=== PATIENT | female | born 1970 | race Caucasian/White ===

== ENCOUNTER 2017-10-24 04:36 | Outpatient (CLI) | payer MEDICAID ==
[~2017-10-24 04:36] MED LIST: BUPR150T8 PO; CIPR-230 PO; LEVO175T2 PO; METO-467 PO; MULT-1179 PO; OMEP10CA4 PO
== END 2017-10-24 23:59 | disposition home or self-care (01) ==
LOC: DIABETIC 04:36
PROVIDERS: ATTEND Nurse Practitioner Family
DX: E03.9 Hypothyroidism, unspecified (principal); I10 Essential (primary) hypertension; K21.9 Gastro-esophageal reflux disease without esophagitis; M35.00 Sjogren syndrome, unspecified; M79.7 Fibromyalgia; L93.0 Discoid lupus erythematosus
CPT/HCPCS: 97802

== ENCOUNTER 2017-12-19 12:31 | Emergency (ER) | payer OTHER, MEDICAID ==
[~2017-12-19] VITALS: Ht 160 cm; Wt 80.0 kg
[2017-12-19 12:56] LABS: BASOPHILS % (AUTO) 0.3 % (0-1); EOSINOPHILS % (AUTO) 0.6 % (0-6); HEMATOCRIT 37.3 % (35.0-45.0); HEMOGLOBIN 12.9 g/dl (12.0-16.0); LYMPHOCYTES # (AUTO) 0.9 X10'3 (1.1-4.8); LYMPHOCYTES % (AUTO) 16.7 % (21-51); MEAN CORPUSCULAR HEMOGLOBIN 32.6 PG (27.0-31.0); MEAN CORPUSCULAR HGB CONC 34.6 % (33.0-36.5); MEAN CORPUSCULAR VOLUME 94.3 FL (78-98); MONOCYTES # (AUTO) 0.2 X10'3 (0-0.9); MONOCYTES % (AUTO) 3.4 % (2-12); NEUTROPHILS # (AUTO) 4.1 X10'3 (1.8-7.7); PLATELET COUNT 253 X10'3 (140-440); RED BLOOD COUNT 3.95 X10'6 (4.20-5.60); RED CELL DISTRIBUTION WIDTH 13.7 % (11.5-14.5); WHITE BLOOD COUNT 5.2 X10'3 (4.5-11.0)
[2017-12-19 13:07] LABS: PARTIAL THROMBOPLASTIN TIME 25 SECONDS (22-32); PROTHROMBIN TIME 10.3 SECONDS (9.0-12.0)
[2017-12-19 13:18] LABS: ALANINE AMINOTRANSFERASE 62 U/L (12-78); ALBUMIN 3.6 G/DL (3.4-5.0); ALKALINE PHOSPHATASE 94 IU/L (46-116); ANION GAP 11 (8-16); ASPARTATE AMINO TRANSFERASE 60 U/L (10-37); BILIRUBIN,TOTAL 0.2 MG/DL (0.1-1.0); BLOOD UREA NITROGEN 15 MG/DL (7-18); BUN/CREATININE RATIO 14.4 (6.6-38.0); CALCIUM 8.5 MG/DL (8.5-10.1); CHLORIDE 102 MMOL/L (99-107); CREATININE 1.04 MG/DL (0.40-0.90); GLUCOSE 127 MG/DL (70-104); POTASSIUM 4.2 MMOL/L (3.5-5.1); SODIUM 139 MMOL/L (135-145); TOTAL CARBON DIOXIDE 26.3 MMOL/L (24-32); TOTAL PROTEIN 7.2 G/DL (6.4-8.2); eGFR 57 ML/MIN
[2017-12-19 15:34] VITALS: BP 132/88
== END 2017-12-19 15:36 | disposition home or self-care (01) ==
LOC: ER 12:32
DX: R07.89 Other chest pain (principal); E78.00 Pure hypercholesterolemia, unspecified; I10 Essential (primary) hypertension; Z88.5 Allergy status to narcotic agent; Z88.8 Allergy status to other drugs, medicaments and biological substances; Z79.899 Other long term (current) drug therapy
CPT/HCPCS: 36415; 71045; 80053; 84484; 85025; 85610; 85730; 93005; 99285

== ENCOUNTER 2018-02-19 07:40 | Emergency (ER) | payer MEDICAID, OTHER ==
[~2018-02-19] VITALS: Ht 162.6 cm; Wt 78.1 kg
[2018-02-19 07:42] VITALS: BP 184/92
[2018-02-19] MEDS ORDERED: cephalexin 500mg capsule PO ONE (08:00)
[2018-02-19] MEDS ORDERED: ketorolac trometh inj. 60 MG/2 ML VIAL IM ONE (08:00)
[2018-02-19] MEDS ORDERED: acetaminophen 325mg tablet PO ONE (08:00)
[2018-02-19] MEDS ORDERED: CefTRIAXone 1000mg IM Kit (w/lidocaine diluent) IM ONE (08:00)
[2018-02-19] MEDS ORDERED: doxycycline hyclate 100mg tablet.DR PO ONE (08:00)
[2018-02-19] MEDS ORDERED: ondansetron 4mg rapidly disintigrating tab PO ONE (08:00)
[2018-02-19] MEDS ORDERED: ONDA8TAB9 PO (08:10)
[2018-02-19] MEDS ORDERED: DOXY100C43 PO (08:10)
[2018-02-19] MEDS ORDERED: CEPH250T PO (08:10)
[2018-02-19] MEDS ORDERED: HYDR-3965 PO (08:10)
[2018-02-19] MEDS ORDERED: DOXYCYCLINE 100MG CAPSULE PO ONE (08:20)
== END 2018-02-19 08:48 | disposition home or self-care (01) ==
LOC: ER 07:41
DX: L03.113 Cellulitis of right upper limb (principal); L02.511 Cutaneous abscess of right hand; E78.00 Pure hypercholesterolemia, unspecified; I10 Essential (primary) hypertension; Z98.890 Other specified postprocedural states; Z88.5 Allergy status to narcotic agent; Z88.8 Allergy status to other drugs, medicaments and biological substances; Z79.899 Other long term (current) drug therapy; Z59.0 Homelessness
CPT/HCPCS: 10060; 96372; 99284; A6255; J0696; J1885

== ENCOUNTER 2018-09-14 10:07 | Emergency (ER) | payer OTHER, MEDICAID ==
[~2018-09-14] VITALS: Ht 162.6 cm; Wt 73.0 kg
[~2018-09-14 10:07] MED LIST changes: +CEPH250T PO; +ONDA4TAB6 PO; +ONDA8TAB9 PO
[2018-09-14 11:44] LABS: BASOPHILS # (AUTO) 0.1 X10'3 (0-0.2); BASOPHILS % (AUTO) 0.6 % (0-1); EOSINOPHILS % (AUTO) 0 % (0-6); HEMATOCRIT 34.9 % (35.0-45.0); HEMOGLOBIN 11.6 g/dl (12.0-16.0); LYMPHOCYTES # (AUTO) 0.7 X10'3 (1.1-4.8); MEAN CORPUSCULAR HEMOGLOBIN 30.9 PG (27.0-31.0); MEAN CORPUSCULAR HGB CONC 33.1 g/dL (33.0-36.5); MEAN CORPUSCULAR VOLUME 93.2 FL (78-98); MEAN PLATELET VOLUME 6.8 FL (7.4-10.4); NEUTROPHILS # (AUTO) 7.1 X10'3 (1.8-7.7); NEUTROPHILS % (AUTO) 80.4 % (42-75); PLATELET COUNT 385 X10'3 (140-440); RED BLOOD COUNT 3.75 X10'6 (4.20-5.60); RED CELL DISTRIBUTION WIDTH 12.8 % (11.5-14.5); WHITE BLOOD COUNT 8.8 X10'3 (4.5-11.0)
[2018-09-14 11:50] LABS: ALANINE AMINOTRANSFERASE 55 U/L (12-78); ALBUMIN 2.6 G/DL (3.4-5.0); ALBUMIN/GLOBULIN RATIO 0.6 (1.1-1.5); ALKALINE PHOSPHATASE 123 IU/L (46-116); ANION GAP 11 (8-16); ASPARTATE AMINO TRANSFERASE 20 U/L (10-37); BILIRUBIN,TOTAL 0.3 MG/DL (0.1-1.0); BLOOD UREA NITROGEN 18 MG/DL (7-18); BUN/CREATININE RATIO 16.2 (6.6-38.0); CALCIUM 9.1 MG/DL (8.5-10.1); CHLORIDE 99 MMOL/L (99-107); CREATININE 1.11 MG/DL (0.40-0.90); GLUCOSE 103 MG/DL (70-104); POTASSIUM 3.9 MMOL/L (3.5-5.1); SODIUM 136 MMOL/L (135-145); TOTAL CARBON DIOXIDE 26.3 MMOL/L (24-32); eGFR 52 ML/MIN
[2018-09-14 11:51] LABS: D-DIMER 0.84 MG/L FEU (0-0.50); PARTIAL THROMBOPLASTIN TIME 28 SECONDS (22-32); PROTHROMBIN TIME 10.4 SECONDS (9.0-12.0)
[2018-09-14] MEDS ORDERED: normal saline 1000ML IV soln IVB ONE (12:30)
[2018-09-14] MEDS ORDERED: iohexol 350MG/ML 100ml bottle IV ONE (12:40)
--- NOTE | 2018-09-14 16:00 | NUR ---
TELE NEURO CONSULT IN PROGRESS.
[2018-09-14 22:18] LABS: C-REACTIVE PROTEIN 18.36 MG/DL (0.0-0.5); CREATINE KINASE 29 U/L (26-192)
--- NOTE | 2018-09-14 22:23 | NUR ---
100 ML ON BLADDER SCANNER, DR DUARTE NOTIFIED.
[2018-09-14 22:41] LABS: CLARITY,URINE SLIGHTLY CLOUDY (Clear); COLOR,URINE YELLOW (Yellow); GLUCOSE, URINE NEGATIVE (Neg); KETONES,URINE TRACE mg/dl (Neg); LEUKOCYTE ESTERASE ,URINE SMALL (Neg); NITRITES, URINE POSITIVE (Neg); OCCULT BLOOD,URINE MODERATE (Neg); PH,URINE 5.5 (4.8-8.0); PROTEIN,URINE 30 mg/dl (Neg); UROBILINOGEN,URINE 0.2 E.U/dL (0.2-1.0)
--- NOTE | 2018-09-14 22:49 | NUR ---
CALLED NEURO TELE DRRoss FOR RE CONSULT AFTER MRI PER DR. DUARTE
[2018-09-14 22:53] LABS: UA COLLECTION TYPE CLN CATCH MIDSTREAM; URINE AMPHETAMINE SCREEN NEGATIVE (Neg); URINE BARBITUATE SCREEN NEGATIVE (Neg); URINE BENZODIAZEPINES SCREEN NEGATIVE (Neg); URINE CANNABINOID SCREEN NEGATIVE (Neg); URINE COCAINE SCREEN NEGATIVE (Neg); URINE METHADONE SCREEN NEGATIVE (Neg); URINE OPIATE SCREEN POSITIVE (Neg); URINE PHENCYCLIDINE SCREEN NEGATIVE (Neg)
[2018-09-14 22:54] LABS: BACTERIA,URINE 4+ /HPF (Neg); SQUAMOUS EPITHELIAL CELL,UR MODERATE /LPF (FEW); WBC CLUMPS,URINE MODERATE /HPF (NEGATIVE); WBC,URINE TNTC /HPF (0-4)
--- NOTE | 2018-09-14 22:59 | NUR ---
PATIENT SPEAKING WITH NEURO COMSULT
[2018-09-15 02:22] VITALS: BP 124/84
--- NOTE | 2018-09-15 03:11 | NUR ---
SPEAKING WITH Lashaun up from [facility] gave patient to patient report dr. jackson on phone with [place] jeovanny palacio as we speak
[2018-09-15] MEDS ORDERED: CefTRIAXone 2gm/D5W 50ml 50 ML IV ONE (03:20)
[2018-09-15] MEDS ORDERED: HYDROcodone/acetaminophen 10/325mg tab PO ONE (04:00)
--- NOTE | 2018-09-15 04:09 | NUR ---
Patient requesting to come off of vitals monitoring briefly to get some sleep. Will check in on patient and closely monitor her to accomodate her request.
[2018-09-16 06:19] LABS: RPR Non Reactive (Non Reactive)
== END 2018-09-15 05:31 | disposition short-term general hospital (02) ==
LOC: ER 10:07
DX: M62.81 Muscle weakness (generalized) (principal); R29.2 Abnormal reflex; E78.00 Pure hypercholesterolemia, unspecified; I10 Essential (primary) hypertension; E03.9 Hypothyroidism, unspecified; Z98.890 Other specified postprocedural states; Z88.5 Allergy status to narcotic agent; Z88.8 Allergy status to other drugs, medicaments and biological substances; Z79.899 Other long term (current) drug therapy
CPT/HCPCS: 36415; 70450; 71045; 71275; 72141; 72146; 72148; 80053; 80305; 81001; 82550; 83605; 83874; 83880; 84443; 84484; 85025; 85379; 85610; 85651; 85730; 86140; 86592; 87040; 87077; 87088; 87186; 87491; 87591; 93005; 96365; 99291; 99292; J0696; J7030; Q9967

== ENCOUNTER 2020-12-24 02:21 | Emergency (ER) | payer MEDICAID, OTHER ==
[~2020-12-24] VITALS: Ht 160 cm; Wt 67.3 kg
[~2020-12-24 02:21] MED LIST changes: -CEPH250T PO; +CIPR-202 PO; -CIPR-230 PO; -OMEP10CA4 PO; +OMEP10CA5 PO
[2020-12-24 02:33] VITALS: BP 142/99
[2020-12-24] MEDS ORDERED: AMOX-115 PO (02:53)
[2020-12-24] MEDS ORDERED: HYDROcodone/acetaminophen 5mg/325mg tablet PO ONE (02:55)
[2020-12-24] MEDS ORDERED: ondansetron 4mg rapidly disintigrating tab PO ONE (02:55)
[2020-12-24] MEDS ORDERED: amox tr/potassium clavulanate 875/125mg TAB PO ONE (02:55)
== END 2020-12-24 03:24 | disposition home or self-care (01) ==
LOC: ER 02:22
DX: K08.89 Other specified disorders of teeth and supporting structures (principal); R09.81 Nasal congestion; R51.9 Headache, unspecified; E78.00 Pure hypercholesterolemia, unspecified; I10 Essential (primary) hypertension; E03.9 Hypothyroidism, unspecified; Z72.89 Other problems related to lifestyle; Z88.8 Allergy status to other drugs, medicaments and biological substances; Z79.2 Long term (current) use of antibiotics; Z79.899 Other long term (current) drug therapy
CPT/HCPCS: 99284

== ENCOUNTER 2021-04-21 15:57 | Emergency (ER) | payer MEDICAID ==
[~2021-04-21] VITALS: Ht 167.6 cm; Wt 68.2 kg
[2021-04-21] MEDS ORDERED: ketorolac tromethamine 15mg/ml inj. IM ONE (17:15)
[2021-04-21 17:44] LABS: BASOPHILS # (AUTO) 0.1 X10'3 (0-0.2); BASOPHILS % (AUTO) 1.1 % (0-1); EOSINOPHILS # (AUTO) 1.4 X10'3 (0-0.9); EOSINOPHILS % (AUTO) 15.7 % (0-6); HEMATOCRIT 40.2 % (35.0-45.0); HEMOGLOBIN 13.5 g/dl (12.0-16.0); LYMPHOCYTES # (AUTO) 1.1 X10'3 (1.1-4.8); LYMPHOCYTES % (AUTO) 12.3 % (21-51); MEAN CORPUSCULAR HEMOGLOBIN 31.1 PG (27.0-31.0); MEAN CORPUSCULAR HGB CONC 33.5 g/dL (33.0-36.5); MEAN CORPUSCULAR VOLUME 92.9 FL (78-98); MEAN PLATELET VOLUME 7.5 FL (7.4-10.4); MONOCYTES # (AUTO) 0.6 X10'3 (0-0.9); MONOCYTES % (AUTO) 6.2 % (2-12); NEUTROPHILS % (AUTO) 64.7 % (42-75); PLATELET COUNT 331 X10'3 (140-440); RED BLOOD COUNT 4.33 X10'6 (4.20-5.60); RED CELL DISTRIBUTION WIDTH 14.2 % (11.5-14.5); WHITE BLOOD COUNT 9.2 X10'3 (4.5-11.0)
[2021-04-21 17:54] LABS: D-DIMER 3.56 MG/L FEU (0-0.50)
[2021-04-21 17:58] LABS: ALANINE AMINOTRANSFERASE 47 U/L (12-78); ALBUMIN 4.3 G/DL (3.4-5.0); ALBUMIN/GLOBULIN RATIO 1.1 (1.1-1.5); ALKALINE PHOSPHATASE 143 IU/L (46-116); ANION GAP 12 (8-16); ASPARTATE AMINO TRANSFERASE 45 U/L (10-37); BILIRUBIN,TOTAL 0.3 MG/DL (0.1-1.0); BLOOD UREA NITROGEN 9 MG/DL (7-18); BUN/CREATININE RATIO 12.2 (6.6-38.0); CHLORIDE 100 MMOL/L (99-107); CREATININE 0.74 MG/DL (0.40-0.90); GLUCOSE 121 MG/DL (70-104); MAGNESIUM 1.7 MG/DL (1.5-2.4); POTASSIUM 3.8 MMOL/L (3.5-5.1); SODIUM 141 MMOL/L (135-145); TOTAL CARBON DIOXIDE 29.2 MMOL/L (24-32); TOTAL PROTEIN 8.2 G/DL (6.4-8.2); eGFR 83 ML/MIN
[2021-04-21] MEDS ORDERED: iohexol 350MG/ML 100ml bottle IV ONE (18:10)
[2021-04-21] MEDS ORDERED: ringers solution, lactated 1000ml IV soln IV ONE (20:05)
[2021-04-21 20:32] LABS: LIPASE 115 U/L (73-393)
[2021-04-21] MEDS ORDERED: ONDA4TAB6 PO (21:42)
[2021-04-21] MEDS ORDERED: pantoprazole 40 MG vial IV ONE (21:45)
[2021-04-21 21:55] VITALS: BP 159/100
== END 2021-04-21 21:56 | disposition home or self-care (01) ==
LOC: ER 17:39
DX: R05.9 Cough, unspecified (principal); Z20.822 Contact with and (suspected) exposure to COVID-19; R11.10 Vomiting, unspecified; R50.9 Fever, unspecified; E78.00 Pure hypercholesterolemia, unspecified; I10 Essential (primary) hypertension; E03.9 Hypothyroidism, unspecified; Z98.890 Other specified postprocedural states; Z72.89 Other problems related to lifestyle; Z88.5 Allergy status to narcotic agent; Z88.8 Allergy status to other drugs, medicaments and biological substances; Z79.2 Long term (current) use of antibiotics; Z79.899 Other long term (current) drug therapy
CPT/HCPCS: 36415; 71045; 71275; 80053; 83605; 83690; 83735; 84145; 84484; 85025; 85379; 87040; 87635; 96360; 96372; 99285; C9803; J1885; Q9967; J7120

== ENCOUNTER 2024-07-20 14:03 | Emergency (ER) | payer MEDICAID ==
[~2024-07-20] VITALS: Ht 160 cm; Wt 64.1 kg
[2024-07-20 15:00] LABS: BASOPHILS # (AUTO) 0.1 X10'3 (0-0.2); BASOPHILS % (AUTO) 1.3 % (0-1); EOSINOPHILS # (AUTO) 0.1 X10'3 (0-0.9); EOSINOPHILS % (AUTO) 2.6 % (0-6); HEMATOCRIT 34.4 % (35.0-45.0); HEMOGLOBIN 11.8 g/dl (12.0-16.0); LYMPHOCYTES # (AUTO) 1.4 X10'3 (1.1-4.8); LYMPHOCYTES % (AUTO) 26.6 % (21-51); MEAN CORPUSCULAR HEMOGLOBIN 34.2 PG (27.0-31.0); MEAN CORPUSCULAR HGB CONC 34.2 g/dL (33.0-36.5); MEAN PLATELET VOLUME 8.1 FL (7.4-10.4); MONOCYTES # (AUTO) 0.4 X10'3 (0-0.9); MONOCYTES % (AUTO) 7.2 % (2-12); NEUTROPHILS # (AUTO) 3.2 X10'3 (1.8-7.7); NEUTROPHILS % (AUTO) 62.3 % (42-75); PLATELET COUNT 191 X10'3 (140-440); RED BLOOD COUNT 3.44 X10'6 (4.20-5.60); RED CELL DISTRIBUTION WIDTH 14.4 % (11.5-14.5); WHITE BLOOD COUNT 5.1 X10'3 (4.5-11.0)
[2024-07-20 15:14] LABS: ALBUMIN 3.3 G/DL (3.4-5.0); ANION GAP 9 (8-16); BLOOD UREA NITROGEN 19 MG/DL (7-18); BUN/CREATININE RATIO 16.5 (10.0-20.0); CALCIUM 9.1 MG/DL (8.5-10.1); CHLORIDE 103 MMOL/L (99-107); CREATININE 1.15 MG/DL (0.40-0.90); GLUCOSE 183 MG/DL (70-104); LIPASE 12 U/L (16-77); POTASSIUM 4.3 MMOL/L (3.5-5.1); SODIUM 137 MMOL/L (135-145); TOTAL CARBON DIOXIDE 25.4 MMOL/L (24-32); eCRCL 46 ML/MIN; eGFR 49 ML/MIN
[2024-07-20 15:38] LABS: ALANINE AMINOTRANSFERASE 25 U/L (12-78); ASPARTATE AMINO TRANSFERASE 26 U/L (10-37); BILIRUBIN,TOTAL 0.5 MG/DL (0.1-1.0); TOTAL PROTEIN 6.6 G/DL (6.4-8.2)
[2024-07-20 15:43] LABS: ALKALINE PHOSPHATASE 189 IU/L (46-116)
[2024-07-20 17:19] LABS: BILIRUBIN,URINE NEGATIVE (Neg); CLARITY,URINE CLEAR (Clear); COLOR,URINE YELLOW (Yellow); GLUCOSE, URINE NEGATIVE (Neg); KETONES,URINE NEGATIVE (Neg); LEUKOCYTE ESTERASE ,URINE NEGATIVE (Neg); NITRITES, URINE NEGATIVE (Neg); OCCULT BLOOD,URINE NEGATIVE (Neg); PROTEIN,URINE NEGATIVE (Neg); UROBILINOGEN,URINE 0.2 E.U/dL (0.2-1.0)
[2024-07-20 17:21] LABS: URINE HCG NEGATIVE (NEG)
[2024-07-20 17:24] LABS: UA COLLECTION TYPE NON-SPECIFIED
[2024-07-20 18:02] VITALS: TEMP 98.2
[2024-07-20 18:41] VITALS: BP 143/86; PULSE 70; RESP 16; O2SAT 100
[2024-07-20] MEDS ORDERED: HYDROcodone/acetaminophen 10/325mg tab PO ONE (22:40)
== END 2024-07-20 20:30 | disposition left against medical advice (07) ==
LOC: ER 14:04
DX: G89.29 Other chronic pain (principal); R10.84 Generalized abdominal pain; I10 Essential (primary) hypertension; E78.00 Pure hypercholesterolemia, unspecified; E03.9 Hypothyroidism, unspecified; Z88.5 Allergy status to narcotic agent; Z88.8 Allergy status to other drugs, medicaments and biological substances; Z79.899 Other long term (current) drug therapy; Z98.890 Other specified postprocedural states; Z72.89 Other problems related to lifestyle
CPT/HCPCS: 36415; 80053; 81003; 81025; 83690; 85025; 93005; 99283; 99284

== ENCOUNTER 2025-02-27 22:18 | Inpatient (IN) | payer MEDICAID ==
[~2025-02-27] VITALS: Ht 162.6 cm; Wt 61.7 kg
[~2025-02-27 22:18] MED LIST changes: -CIPR-202 PO; +CIPR-458 PO
--- NOTE | 2025-02-27 22:49 | Physician Documentation ---
History of Present Illness ~ Chief Complaint: Weakness Stated Complaint: WEAKNESS Time Seen by MD: 22:23 OK to notify your PCP?: Yes Primary Medical Doctor: FRANCK MCCLAIN This is a 54-year-old female who presents for evaluation of generalized weakness, nausea, vomiting, right-sided abdominal pain and state of confusion without headache. She feels that abdominal pain has been present for months, nausea vomiting has been present for months, but all got worse in the last couple of days. No obvious trigger provocation. No palliating or aggravating factors, unable to eat anything to keep it down, throws up every single time she tries to eat. Too numerous to count episodes of vomiting and retching. Abdominal pain located in the right side, worse with the palpation of right upper quadrant, the particular palliating factors. Did not attempt to treat it specifically, however has been trying to take her Percocet that she recently gotten in place him [place], which she takes for chronic back pain. The patient is very concerned about the state of confusion, her head feels foggy. No trauma to the head. She reports chills. She had alcohol yesterday, none today. Medication Reconciliation Allergies: Coded Allergies: codeine (Verified Allergy, Unknown, 02/27/25) lisinopril (Unverified Allergy, Unknown, COUGH, 02/27/25) Scheduled Bupropion Hcl SR* (Wellbutrin SR*), 1 TAB PO BID, (Reported) Ciprofloxacin HCl (Ciprofloxacin HCl), 1 TAB PO BID Levothyroxine* (Synthroid*), 112 MCG PO DAILY, (Reported) Metoprolol Tartrate (Lopressor), 1 TAB PO BID, (Reported) Multivitamins,Therapeutic* (Theragran-M*), 1 EACH PO DAILY, (Reported) Omeprazole (Omeprazole), 1 CAP PO BID, (Reported) Ondansetron Hcl (Zofran), 1-2 TAB PO Q8H Ondansetron Hcl (Zofran), 1 TAB PO Q6H Scheduled PRN Ondansetron (Zofran Odt), 8 MG PO QID PRN for nausea/vomiting Past Medical History Past Medical History: High Cholesterol, Hypertension, Hypothyroidism Past Surgical History: no surgical history, orthopedic surgeries Other Past Family History: father [place] in 50s, mother had PE, and brother from [place] at 47. Alcohol Use: Occasionally Drug Use: none Lives with: Spouse Lives In: Home Review of Systems ROS 10 point review of systems was performed and unless noted above in HPI is negati ve for acute process/complaint. Physical Exam Vital Signs: Temperature: 98.8, Source: Oral, Heart Rate: 59, Respiratory Rate: 16, BP: 164/101, Pulse Oximetry: 98, Weight: 61.700 Oxygen Flow Rate: 0 Physical Exam GENERAL: Awake, alert, oriented, GCS 15, no apparent distress, non-toxic appearing, answers questions, follows commands appropriately. Examined immediately upon arrival on EMS gurney, placed in the 14 HEENT: Atraumatic, normocephalic, pupils equal, extraocular muscles intact, sclerae anicteric, mucus membranes moist, oropharynx is clear, no stridor. NECK: supple, full active range of motion, trachea midline, no thyromegaly, no lymphadenopathy, no JVD. CARDIOVASCULAR: regular rate/rhythm, no murmurs/gallops/rubs, Pulses are 2+ in all extremities and symmetric. Capillary refill less than 2 seconds. PULMONARY: Nonlabored, good air movement ,no respiratory distress, speaking in full sentences, clear to auscultation bilaterally, no wheezing, no ronchi, no rales, no accessory muscle use. GASTROINTESTINAL: Soft, right upper quadrant tenderness to palpation reproducing chief complaint, non-distended, normal active bowel sounds, no organomegaly, no pulsatile masses, no CVA tenderness. NEUROLOGIC: Lucid with normal mental status. Normal facial symmetry. Moves all extremities symmetrically and with purpose. No truncal ataxia. Speech is fluid without evidence of dysarthria or aphasia, no focal deficits appreciated. MUSCULOSKELETAL: There is full range of motion of all extremities. There is no joint pain or joint swelling or joint erythema. There is no muscle pain or tenderness or swelling. EXTREMITIES: warm, well-perfused, no cyanosis, no clubbing, no edema, no acute deformities. Skin: warm, dry, no rashes or lesions, no jaundice, no petechiae orpurpura. No ecchymosis. PSYCHIATRIC: Normal affect, normal insight, normal concentration. Focused exam: Positive Harrell's sign Progress Results/Orders Results/Orders Orders - PIPO BLUNT DO Ultrasound Of Abdomen (02/27/25 ) Chest,Single View (02/27/25 22:38) Monitor (02/27/25 22:38) Saline Lock (02/27/25 22:38) Ct Head (02/27/25 22:38) Ct Abdomen Pelvis (02/27/25 22:38) Cult Urine + [facility] Ct (02/28/25 00:21) Completed Orders - PIPO BLUNT DO Ethanol (02/27/25 22:38) Hcg Serum Ql (02/27/25 22:38) Drug Screen, Urine (02/27/25 22:38) Prochlorperazine Inj (Compazine Inj) (02/27/25 22:40) Morphine 4mg/Ml Inj. (Morphine Inj.) (02/27/25 22:40) Ultrasound Of Abdomen (02/27/25 ) Electrocardiogram (02/27/25 22:38) Cbc/Diff (02/27/25 22:38) Lipase (02/27/25 22:38) Pt Inr (02/27/25 22:38) PTT (02/27/25 22:38) Chest,Single View (02/27/25 22:38) PBNP (02/27/25 22:38) MG (02/27/25 22:38) Normal Saline 1000ml (0.9% Sodium Chlori (02/27/25 22:40) Ct Head (02/27/25 22:38) Ct Abdomen Pelvis (02/27/25 22:38) CMP (02/27/25 22:38) Hs Troponin I W Calculations (02/27/25 22:38) Hs Troponin I W Calculations (02/28/25 00:38) Ua W/Microscopic, Cult If Ind (02/27/25 00:00) Medications Received in ER Medications (Trade) Dose Ordered Sig/Jim Route PRN Reason Start Time Stop Time Status Last Admin Dose Admin (Compazine inj) 5 mg ONCE ONCE IV 02/27/25 22:40 02/27/25 22:44 DC 02/27/25 23:04 5 MG (morphine inj.) 4 mg ONCE ONCE IV 02/27/25 22:40 02/27/25 22:44 DC 02/27/25 23:05 4 MG (0.9% sodium chloride (NS) 1000ml IV soln) 1,000 ml ONCE ONCE IVB 02/27/25 22:40 02/27/25 22:44 DC 02/27/25 23:05 1,000 ML Vital Signs 02/27/25 02/27/25 02/27/25 02/28/25 22:25 22:40 23:05 02:01 Temp 98.8 Pulse 59 Resp 16 16 16 18 B/P (MAP) 164/101 Pulse Ox 98 O2 Flow Rate 0 02/28/25 02:24 Pulse 71 Resp 16 B/P (MAP) 112/69 (83) Pulse Ox 96 O2 Flow Rate 0 Laboratory Tests Test 02/27/25 00:00 02/27/25 23:12 02/28/25 01:07 Urine Specimen Description Cln catch midstream Urine Color Yellow Urine Clarity Clear Urine pH 6.0 Urine Specific [place] <=1.005 Urine Protein Negative Urine Glucose (UA) Negative Urine Ketones Negative Urine Occult Blood Negative Urine Nitrite Positive H Urine Bilirubin Negative Urine Urobilinogen 0.2 Urine Leukocyte Esterase Negative Urine RBC None seen Urine WBC 0-4 Urine Squamous Epithelial Cells Few Urine Bacteria 4+ Urine Culture Indicated Indicated Volume Urine Centrifuged 10 ml Urine Comment Urine Opiates Screen Positive Urine Methadone Screen Negative Urine Fentanyl Screen Negative Urine Barbiturates Screen Negative Urine Phencyclidine Screen Negative Urine Amphetamines Screen Negative Urine Benzodiazepines Screen Negative Urine Cocaine Screen Negative Urine Cannabinoids Screen Negative Drug Screen Comment White Blood Count 4.5 Red Blood Count 3.85 L Hemoglobin 12.6 Hematocrit 36.0 Mean Corpuscular Volume 93.6 Mean Corpuscular Hemoglobin 32.8 H Mean Corpuscular Hemoglobin Concent 35.1 Red Cell Distribution Width 13.7 Platelet Count 268 Mean Platelet Volume 7.4 Neutrophils (%) (Auto) 45.7 Lymphocytes (%) (Auto) 42.9 Monocytes (%) (Auto) 4.5 Eosinophils (%) (Auto) 4.3 Basophils (%) (Auto) 2.6 H Neutrophils # (Auto) 2.1 Lymphocytes # (Auto) 1.9 Monocytes # (Auto) 0.2 Eosinophils # (Auto) 0.2 Basophils # (Auto) 0.1 CBC Comment Prothrombin Time 12.4 H INR International Normalized Ratio 1.2 Activated Partial Thromboplast Time 26 Coagulation Comments Sodium Level 139 Potassium Level 4.0 Chloride Level 104 Carbon Dioxide Level 29.2 Anion Gap 6 L Blood Urea Nitrogen 10 Creatinine 0.88 Estimated GFR/1.73 m2 67 BUN/Creatinine Ratio 11.4 Glucose Level 109 H Calcium Level 7.6 L Magnesium Level 1.4 L Total Bilirubin 0.3 Aspartate Amino Transf (AST/SGOT) 403 H Alanine Aminotransferase (ALT/SGPT) 76 Alkaline Phosphatase 290 H Troponin I High Sensitivity 7 7 Pro-B-Type Natriuretic Peptide 128 H Total Protein 6.0 L Albumin 2.8 L Globulin 3.2 Albumin/Globulin Ratio 0.9 L Lipase 8 L Human Chorionic Gonadotropin, Qual Negative Chemistry Comments Ethyl Alcohol Level 219 H Troponin I High Sens Percent Delta 0 Troponin I Hi Sens Absolute Change 0 Microbiology Date/Time Source Procedure Growth Status 02/28/25 00:21 Urine Clean Catch Midstream Urine Culture - Preliminary Culture received. Resulted EKG/XRAY/CT/US/VASC/MRI EKG : Additional Comment EKG was obtained and interpreted by myself shows sinus rhythm of 60, normal ND interval, narrow QRS, no QT prolongation, normal axis, no STEMI. Medical Decision Making Findings Facility Status: ED Holds, [facility] process The plan was discussed with the patient, who demonstrates clear understanding of the plan and is in agreement with the plan unless otherwise noted in the chart. All questions have been answered, all concerns were addressed unless otherwise documented. I was available throughout their ED stay for frequent reassessment and questions. Differential Diagnoses (considered and possible or likely): [Differential diagnosis considered includes acute appendicitis, acute cholecystitis, pancreatitis, gastritis, PUD, diverticulitis, mesenteric ischemia, abdominal aortic aneurysm, bowel obstruction, enteritis, colitis, fecal impaction, volvulus, IBS, inflammatory bowel disease, specific food intolerance, peritonitis, perforated viscous, malignancy, UTI, abscess, and abdominal pain NOS. Pelvic source of pain was also considered including endometritis, dysmenorrhea, ovarian cyst, ovarian torsion, PID, TOA, cervicitis, vaginitis, or uterine fibroid. History, physical exam, and workup exclude many of the more serious causes listed above. She did report slight chest tightness. Differential diagnosis considered includes chest wall pain, pleurisy, pneumonia, pulmonary embolus, GERD, esophagitis, gastritis, anxiety, stress reaction, costochondritis, acute coronary syndrome, aortic dissection, pericarditis, myocarditis, or pneumothorax. With respect to confusion, differential includes but not limited to dehydration, electrolyte derangement, urinary tract infection, pneumonia, occult bacteremia, less likely meningitis or encephalitis, given the right upper quadrant tenderness to palpation, known history of gallstones, this is somewhat concerning for ascending cholangitis.] ??Differential Diagnoses (considered and unlikely, not requiring evaluation currently): [No evidence of lateralizing signs to suspect a stroke] MDM Data Please see HPI for the following: Independent Historians and external Records Review. Historian: [Patient] Independent Historians: ?[EMS] Medication Management: [Reviewed medication list] Social History and determinants: [Reviewed] Please see the body of the note for the following: Any independent interpretations of ECG, imaging studies. All vitals signs/haemodynamics, ordered tests were independently reviewed and interpreted by myself. Nursing triage complaint and vitals reviewed, additional nursing notes were reviewed as available and I agree unless otherwise noted or documented in contradiction in the chart Vital Signs: Independently reviewed Labs: Independently interpreted Imaging: Independently interpreted Old Medical Records: Independently reviewed, see HPI for relevant summary and information Pulse Oximetry: [96%] interpreted as [normal on room air] by me [Social Services Technician: [Regular Rate, Regular rhythm, no ectopy, NSR] reviewed and interpreted by me] Additionally notably showing: [Hemodynamics reviewed. The patient is not febrile, not tachycardic, no evidence of hypotension respiratory distress. CBC normal coagulation panel is unremarkable. Metabolic panel notable for hypomagnesemia, transaminitis and alcoholic pattern. Elevation of the AST noted. BNP is mildly elevated. Hypoalbuminemia consistent with alcoholic liver disease noted. Lipase is normal. She is not . Initial and repeat troponin are negative. She is positive for opioids, consistent with her taking opioids at home. UA is nondiagnostic for UTI. Alcohol is 219, despite the lady denies consumption of alcohol today. She is drunk. Chest x-ray was obtained showing no acute cardiopulmonary abnormality. Head CT showed no acute intracranial pathology. 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 Ultrasound of the abdomen has a positive Harrell's sign, fatty infiltration of the liver, incidental finding of a heterogenous complex cystic structure in the left hepatic lobe. Gallbladder wall is borderline thickened. CT of the abdomen and pelvis was obtained. It was a single face contrast CT, not designed to evaluate liver. It does however show a low-density 4 x 3 cm mass with a peripheral enhancement. This would be concerning for liver abscess. There is also as 6 x 4 cm mass/cystic lesion at the pancreatic tail. Otherwise no acute intra-abdominal process. Lady urinating] Tests considered but not ordered include: [HIDA scan can be done on an inpatient basis] Social Determinants of Health Impact: Patient was evaluated in [facility] [place] to healthcare due to below par ratio of patient to medical providers. [] Comorbid Conditions Impacting Present Evaluation and Care/Treatment: [Known history of gallstones, strongly suspect alcoholism] Management Discussions with other Healthcare Providers: [Hospitalist regarding admission] Treatment and Disposition Medication Management (Given or considered): [Fluid resuscitation was provided for treatment of clinically and/or laboratory apparent dehydration. The pain management, nausea management]. See EMR for details Consideration for Hospitalization/Escalation/Deescalation of Care: Admission for observation is necessary for further evaluation of her right upper quadrant abdominal tenderness and equivocal cholecystitis. She will require HIDA scan. Workup of her pancreatic and liver mass can be probably done on an outpatient basis. ?ED Course:?[No clinical deterioration] ?Shared decision making:?[] Code status:?FULL Please see the full Electronic Medical Record for full details of nursing documentation, medications list, other records of complete past medical history and conditions, vital signs, laboratory studies, and any radiologic study interpretations by radiologists. Portions of this note were completed using [employer] dictation software and as a result there may exist minor errors in spelling. I have reviewed elements of past family and social history and agree as included in note. Departure Disposition: ADMITTED INPATIENT Admitted to Inpatient Unit: to hospitalist Impression: Primary Impression: Suspected acute cholecystitis Additional Impressions: Right upper quadrant abdominal pain Liver mass Pancreatic mass Alcohol intoxication Transaminitis Hypoalbuminemia Fatty liver Brain fog Nausea and vomiting Condition: Stable Referrals: NO PRIMARY CARE PROVIDER (PCP) Education Educated: Patient Educated regarding: diagnosis, treatment, prognosis, need for follow up Signature Scribe Signature: No scribe Attestation: This note accurately reflects clinical decisions, work performed by myself, Pipo Blunt, PIPO WINKLER DO Feb 27, 2025 22:49
--- NOTE | 2025-02-27 22:50 | ELECTROCARDIOGRAPH REPORT ---
[facility] Test Date: 2025-02-27 Test Time: 22:47:22 Pat Name: LANDON GARZA Department: [facility]-ER Patient ID: [facility]-[id number] Room: [place] [id number] Gender: F Welding Machine Setter: : 1970 Requested By: AMINATA BONILLA Order Number: [id number] Reading MD: Dr. Gregor Chaney Measurements Intervals [place] Rate: 60 P: 10 CT: 179 QRS: 26 QRSD: 95 T: 30 QT: 425 QTc: 425 Interpretive Statements Sinus rhythm Low voltage, precordial leads Electronically Signed On 03-01-2025 21:24:[address] Gregor Chaney Please click the below link to view image of tracing.
[2025-02-27] MEDS: morphine 4 MG/ML inj SYRINge IV ONE (23:05)
[2025-02-27] MEDS: normal saline 1000ML IV soln IVB ONE (23:05)
[2025-02-27 23:41] LABS: MEAN PLATELET VOLUME 7.4 FL (7.4-10.4); RED CELL DISTRIBUTION WIDTH 13.7 % (11.5-14.5)
[2025-02-27 23:51] LABS: APTT 26 SECONDS (22-32); INR 1.2 INR
[2025-02-27 23:54] LABS: CREATININE 0.88 MG/DL (0.40-0.90); TOTAL CARBON DIOXIDE 29.2 MMOL/L (24-32); eCRCL 63 ML/MIN; eGFR 67 ML/MIN
[2025-02-28 00:01] LABS: ETHANOL 219 MG/DL (<10); PRO BRAIN NATRIURETIC PEPTIDE 128 PG/ML (0-125)
[2025-02-28 00:04] LABS: HCG SERUM QL NEGATIVE
--- NOTE | 2025-02-28 00:05 | RADIOLOGY REPORT ---
CHEST RADIOGRAPH Indication: weakness Technique: Single frontal view of the chest was obtained COMPARISON: None FINDINGS: Lines and Tubes: None Lungs: Clear Pleura: No pleural effusion. No pneumothorax. Cardiomediastinal contours: Unremarkable IMPRESSION: No acute abnormality demonstrated.
[2025-02-28 00:15] LABS: LEUKOCYTE ESTERASE ,URINE NEGATIVE (Neg); NITRITES, URINE POSITIVE (Neg); OCCULT BLOOD,URINE NEGATIVE (Neg)
[2025-02-28 00:21] LABS: UA COLLECTION TYPE CLN CATCH MIDSTREAM
[2025-02-28 00:22] LABS: SQUAMOUS EPITHELIAL CELL,UR FEW /LPF (FEW)
[2025-02-28 00:33] LABS: URINE AMPHETAMINE SCREEN NEGATIVE (Neg); URINE BARBITUATE SCREEN NEGATIVE (Neg); URINE BENZODIAZEPINES SCREEN NEGATIVE (Neg); URINE CANNABINOID SCREEN NEGATIVE (Neg); URINE COCAINE SCREEN NEGATIVE (Neg); URINE METHADONE SCREEN NEGATIVE (Neg); URINE OPIATE SCREEN POSITIVE (Neg); URINE PHENCYCLIDINE SCREEN NEGATIVE (Neg)
--- NOTE | 2025-02-28 00:43 | RADIOLOGY REPORT ---
RIGHT UPPER QUADRANT ABDOMINAL ULTRASOUND CLINICAL HISTORY: RUQ pain COMPARISON: None TECHNIQUE: Grayscale and color Doppler ultrasound imaging of the right upper quadrant is performed. FINDINGS: Pancreas: Obscured by artifact from bowel gas. Liver: Increased hepatic parenchymal echogenicity. The portal vein appears patent. Complex, hypoecho ic lesion in the left hepatic lobe measuring up to approximately 4 cm in diameter. Gallbladder: No sizable, shadowing calculi identified. Borderline gallbladder wall thickening to 2.7 mm. Positive sonographic mercado's sign. Common bile duct: Nondilated. Right Kidney: Measures 8.5 cm in length. No hydronephrosis. Right upper quadrant Inferior vena cava: Visualized portions are grossly patent. IMPRESSION: Increased hepatic parenchymal echogenicity which is most commonly seen with fatty infiltration. Heterogeneous lesion in left hepatic lobe is incompletely characterized. Recommend hepatic protocol C T and/or MRI to further evaluate. Borderline gallbladder wall thickening with positive sonographic mercado's sign. Findings are equivoca l for cholecystitis. HIDA scan may be obtained to further evaluate.
--- NOTE | 2025-02-28 00:52 | RADIOLOGY REPORT ---
CT CT HEAD INDICATION: ALOC COMPARISON: None TECHNIQUE: CT of the head without intravenous contrast. RADIATION DOSE: CTDIvol: mGy, DLP: mGy*cm FINDINGS: No evidence of intracranial hemorrhage, infarct, extra-axial collection, mass effect, midline shift or herniation. Ventricles, sulci and cisterns are within normal limits with no hydrocephalus. Patel-wh ite differentiation is preserved. Visualized paranasal sinuses, mastoid air cells and middle ear cavities are clear. Suggestion of bila teral proptosis; orbits otherwise appear unremarkable. Soft tissues and osseous structures are unrema rkable. IMPRESSION: No intracranial abnormality identified.
--- NOTE | 2025-02-28 01:54 | RADIOLOGY REPORT ---
Exam: CT CT ABDOMEN PELVIS W/ IV CONTRAST History: R sided abd pain, n/v COMPARISON: Abdominal ultrasound 02/28/25 Technique: Multidetector spiral CT of the abdomen and pelvis was performed from lung bases to pubic s ymphysis. Intravenous contrast was administered during this examination. Portal venous imaging was obtained. Axial, coronal and sagittal multiplanar reformats were performed by the technologist on a separate workstation. Radiation Dose : 1. Abdomen/Pelvis: CTDIvol mGy, DLP mGy*cm. CONTRAST: Type of contrast: Contrast injected: ml Contrast ingested: ml Findings: Lung Bases: No abnormality demonstrated. Liver: Normal in size. Diffuse decreased density consistent with considerable fatty infiltration. The re is a low-density measuring approximately 3.9 x 3.3 cm in the left lobe of the liver which demonstr ates mild peripheral enhancement and corresponds to the lesion seen on the ultrasound study from [facility] the same day. Gallbladder and Biliary Tree: Gallbladder is mildly distended but otherwise appears unremarkable. No evidence of biliary ductal dilatation. Spleen: No abnormality demonstrated. Pancreas: Pancreas is atrophic with dilatation of the pancreatic duct. There is a cystic lesion in th e tail of the pancreas measuring approximately 5.8 x 4 cm. Adrenal Glands: No abnormality demonstrated. Kidneys: No abnormality demonstrated. Bladder: Unremarkable. Bowel: There is wall thickening and enhancement involving the stomach and duodenum, nonspecific but s uggestive of gastritis / duodenitus. No abnormally dilated loops of large or small bowel noted. Appen xochitl appears unremarkable. Ascites: Absent Lymphadenopathy: No evidence of lymphadenopathy. Abdominal Wall and Mesentery: Unremarkable. Vasculature: Unremarkable. Pelvic Organs: Unremarkable Musculoskeletal: No bony lesions or acute fracture. Mild old compression deformity of the superior e ndplate of the L3 vertebral body with minimal loss of vertebral body height without retropulsion. S/p posterior decompression and instrumented fusion at L4-L5. IMPRESSION: Wall thickening and enhancement involving the stomach and duodenum suggestive of gastritis / duodenit us. Pancreas is atrophic with a cystic lesion in the tail of the pancreas measuring approximately 5.8 x 4 cm representing cystic neoplasm vs. psuedocyst. Considerable fatty infiltration of the liver. Evidence of a low-density measuring approximately 3.9 x 3.3 cm in the left lobe of the liver corresponding to the lesion seen on the ultrasound study from [facility] the same day. This can be further characterized with gadolinium-enhanced MRI. Radiation optimization: All CT scans at this facility use at least one of these dose optimization brady hniques: automated exposure control mA and/or kV adjustment per patient size (includes targeted exam s where dose is matched to clinical indication) or iterative reconstruction.
[2025-02-28] MEDS ORDERED: potassium Cl 20 mEq SR tablet PO PRN (04:25)
[2025-02-28] MEDS ORDERED: mag hydrox/Alum hydrox/simeth 30ml oral suspension PO PRN (04:25)
[2025-02-28] MEDS ORDERED: dextrose 50%-water 50ml dispensing syringe IV PRN (04:25)
[2025-02-28] MEDS ORDERED: magnesium sulf-water 4G/100mL 100 ML IV PRN (04:25)
[2025-02-28] MEDS ORDERED: haloperidol lactate 5mg/ml inj IM PRN (04:25)
[2025-02-28] MEDS ORDERED: potassium Cl 40MEQ/1/2NS 520ml 520 ML IV PRN (04:25)
[2025-02-28] MEDS: normal saline 1000ml 1,000 ML IV SCH ×2 (04:25→11:55)
[2025-02-28] MEDS ORDERED: magnesium sulf-water 2g/50mL 50 ML IV PRN (04:25)
--- NOTE | 2025-02-28 05:10 | HISTORY AND PHYSICAL-Residence ---
History & Physical Providers to CC Resident Creating Document: WOOD ANDREWS, RES ~ History of Present Illness Primary Medical Doctor: FRANCK Reason for Admit\Complaint: Acute abdominal pain, possible cholecystitis, UTI History of Present Illness 54-year-old female with past medical history of pancreatic insufficiency, pancreatic cyst, GERD, hypertension, chronic back pain, lupus, Sjogren's syndrome presented to the ED with chief complaint of right upper quadrant abdominal pain, nausea, vomiting and generalized weakness. The patient reports that she has been having progressively worsening generalized weakness with the last one week associated with the right upper quadrant abdominal pain. She reports that the abdominal pain has been going on since the past few months but is significantly worse with the last 2-3 days. Has a associated nausea and vomiting and reports that she has not been able to keep anything down due to repeated episodes of vomiting. Currently the patient states that her right upper quadrant abdominal pain is five on a scale of 10 and has a improved since coming to the ER. She also reported that ondansetron helps with her nausea and vomiting. She reports that she has a history of chronic pain syndrome due to a lumbar fracture and hence is on Kahlotus 10 mg q.i.d. at home but ran out of the medication since the last one week because of which she been drinking more heavily than usual. She reports that the pharmacy ran out of her Kahlotus and hence she was not able to get a refill. She also noticed being confused and initially thought she has a underlying sepsis but now thinks that it could be due to her new medication Percocet which was prescribed two days ago by her PCP. The patient stated that she also has been having right jaw pain since the last one week and this is due to tooth infection that she has been having since the last few months but is not able to take care of it yet. PCP-[facility] Code status-full code Allergies: Coded Allergies: codeine (Verified Allergy, Unknown, 02/27/25) lisinopril (Unverified Allergy, Unknown, COUGH, 02/27/25) Home Medications Home Medications Active Zofran (Ondansetron Hcl) 4 Mg Tablet 1 Tab PO Q6H 5 Days Zofran (Ondansetron Hcl) 4 Mg Tablet 1-2 Tab PO Q8H 5 Days Zofran Odt (Ondansetron) 8 Mg Tab.rapdis 8 Mg PO QID PRN Ciprofloxacin HCl (Ciprofloxacin) 500 Mg Tab 1 Tab PO BID Reported Theragran-M* (Multivitamins Therapeutic) 1 Each Tablet 1 Each PO DAILY Wellbutrin SR* (Bupropion HCl) 150 Mg Tablet.sa 1 Tab PO BID LOOK-ALIKE SOUND-ALIKE DRUG buSPIRone & buPROPion Omeprazole 10 Mg Capsule. 1 Cap PO BID 30 Days Synthroid* (Levothyroxine Sodium) 175 Mcg Tab 112 Mcg PO DAILY 30 Days Lopressor (Metoprolol Tartrate) 50 Mg Tablet 1 Tab PO BID 30 Days Past Medical History Past Medical History Pancreatic insufficiency, pancreatitis cyst, GERD, hypertension, chronic back pain, lupus, Sjogren's syndrome Lumbar fracture currently awaiting consultation with neurosurgeon Dr. Watson Past Surgical History Surgical History Comment Orthopedic surgeries(hand and foot), back surgery Past Social History Social History Comment Drinks whiskey three to five drinks every day. Has been drinking more heavily since the last one week she ran out of her pain medications. Denies smoking Uses CBD gummies occasionally to help sleep better Lives at home with her boyfriend Alcohol Use: Occasionally Drug Use: None Lives with: Spouse Lives In: Home ROS ROS CONSTITUTIONAL: No fever. No chills. No dizziness. Severe generalized weakness that has been worsening over the last one week. No weight gain or Loss. EYES: No pain, erythema, or discharge. No blurring of vision. ENT: No sore throat, No epistaxis. No tinnitus. Pain in the right side of her jaw has been mentioned in the HPI. CARDIOVASCULAR: No chest pain, chest pressure, chest discomfort. no palpitations or syncope. No lower extremity edema. No paroxysmal nocturnal dyspnea. RESPIRATORY: No shortness of breath, No cough, No hemoptysis. No dyspnea. GASTROINTESTINAL: Decreased appetite, nausea and vomiting that has been worsening in the past one week. Right upper quadrant abdominal pain that has been chronic since the past few months but is currently more significant over the last 2-3 days. GENITOURINARY: No frequency, urgency, nocturia. No hematuria or dysuria. MUSCULOSKELETAL: Chronic back pain due to lumbar spine fracture INTEGUMENTARY: no change in skin, hair, nails. No swelling. No bruising. No abrasions. NEUROLOGIC: No headache. No neck pain. No numbness or tingling of the extremities. No weakness. PSYCHIATRIC: no delusions, no depression, no loss of interest in normal activity or change in sleep pattern, no hallucinations or suicidal ideations HEMATOLOGICAL: No bleeding. No petechiae. No bruising. Exam Vitals: Vital Signs Date Time Temp Pulse Resp B/P (MAP) Pulse Ox O2 Delivery O2 Flow Rate FiO2 02/28/25 02:24 71 16 112/69 (83) 96 0 02/27/25 22:25 98.8 General: General: Awake and Alert, no acute distress. HEENT: Conjunctiva pink, Sclera clear, Mucus Membranes moist. Neck: Supple without masses and tenderness. Resp: Unlabored. Lungs clear to auscultation bilaterally. Heart: Regular Rate and rhythm, normal S1 and S2 without murmur, rub or gallop. Abdomen: Soft, tenderness in the right upper quadrant. Harrell's sign positive. Bowel sounds present. Extremities: No cyanosis,clubbing or edema. Skin: Warm and Dry. Neurology: No focal motor or sensory deficits. Musculoskeletal: No deformities noted. Diagnostic Data Last Recorded Lab Results: 02/27/25231102/27/25 2312 Diagnostic Data: Laboratory Tests Test 02/27/25 23:12 Prothrombin Time 12.4 SECONDS (9.0-12.0) H INR International Normalized Ratio 1.2 INR Activated Partial Thromboplast Time 26 SECONDS (22-32) Coagulation Comments Advance Care Planning Advanced Care planning: Add on additional 30 min Additional Plan Acute abdominal pain Right upper quadrant abdominal pain most likely secondary to acute cholecystitis The patient was initially evaluated with the ultrasound of the abdomen which was significant for borderline gallbladder thickening with a positive Harrell's sign. Findings equivocal for cholecystitis and HIDA scan was recommended. CT scan of the abdomen was done which showed mildly distended gallbladder without any evidence of biliary duct dilatation. A HIDA scan has been ordered to evaluate for acute cholecystitis. Patient is started on IV ceftriaxone. IV fluids for hydration and maintenance. IV morphine 2 mg q.4 hours as needed for pain for supportive care. Alcohol use disorder Hepatic steatosis Hepatic cyst Patient's AST-403, ALT 76, ALP 290. CT scan of the abdomen shows considerable fatty infiltration low-density 3.9-3.3 cm cyst in the left lobe of the liver. Patient reported that she drinks 4-5 drinks of whiskey every day. She stated that she has been drinking heavily over the last one week since she was out of her pain medications. Patient has been educated regarding lifestyle modifications and the importance of staying abstinent from alcohol. Started on alcohol withdrawal protocol. Started her on IV thiamine , folic acid and multivitamin supplementation. Requires further evaluation of the hepatic cyst with the MRI with contrast. UTI The patient's urine analysis is positive for nitrates and 4+ bacteria. Started the patient on IV ceftriaxone. Follow up with the urine culture and blood culture. Continue IV fluids for hydration and maintenance. Systemic lupus erythematosus Sjogren syndrome Awaiting med reconciliation. Chronic pancreatic insufficiency Pancreatic cyst Patient reported that he has a history of chronic pancreatic insufficiency. She reports that she is aware of the pancreatic cyst. Lumbar spine fracture The patient is seeing Dr. Watson, neurosurgeon as outpatient. Continue supportive care. PT evaluation and treatment to be done. CODE STATUS: Full code DVT prophylaxis: SCDs GI prophylaxis: IV Protonix Diet: NPO Disposition: Continue medical management. Follow up with a HIDA scan. Consult surgery if the HIDA scan is positive. Wood Andrews MD Internal Medicine Resident, PGY-3 Plan reviewed with bedside team. Patient seen through remote audiovisual assessment through HIPAA compliant setup. All labs, flowsheets, and images reviewed Cumulative nonprocedural care time spent in directed patient care = 30 min Date of Service: Feb 28, 2025 Billing Provider: SAMREEN DENNIS MD, SURYA PRATIK, RES Feb 28, 2025 05:10 SAMREEN DENNIS MD Feb 28, 2025 06:39
[2025-02-28 06:55] VITALS: BP 175/85; PULSE 59; RESP 15; TEMP 98.4; O2SAT 97
[2025-02-28] MEDS: K and/or MAG REPLACEMENT MC SCH (08:00)
[2025-02-28] MEDS: thiamine 100mg/ml 2ml inj. IV SCH (08:16)
[2025-02-28] MEDS: folic acid 1mg/0.2ml inj IV SCH (08:16)
[2025-02-28] MEDS: ondansetron/PF 4mg/2ml inj IV PRN (08:16)
[2025-02-28] MEDS: docusate sod 100mg capsule PO SCH (08:17)
[2025-02-28] MEDS: magnesium Cl slow-release 64mg tablet PO PRN (08:18)
[2025-02-28] MEDS: CefTRIAXone/D5W-Rocephin 1gm 50 ML IV SCH (08:18)
[2025-02-28] MEDS: hydrALAZINE 20mg/ml inj. IV ONE (08:55)
[2025-02-28 10:00] VITALS: BP 159/90; PULSE 66; RESP 15; TEMP 98.2; O2SAT 97
[2025-02-28] MEDS: NORMAL SALINE IV ONE (10:00)
[2025-02-28] MEDS: SINCALIDE IV ONE (10:00)
[2025-02-28] MEDS: metoclopramide 5 mg/ml inj IV ONE (11:50)
--- NOTE | 2025-02-28 12:17 | RADIOLOGY REPORT ---
NUCLEAR MEDICINE HEPATOBILIARY SCAN REASON FOR EXAM: R/o cholecystitis. Right-sided abdominal pain. Nausea and vomiting. RADIOPHARMACEUTICAL: 5.09 mCi Tc-99m mebrofenin, IV AUTHORIZED USER: Zak Mckeon M.D. TECHNIQUE: Following the intravenous administration of 5.09 Tc-99m Choletec, sequential images were obtained over the abdomen for sixty minutes. FINDINGS: There is prompt, uniform accumulation of tracer by the liver. There is normal filling of t he intrahepatic ducts and common bile duct. There is normal excretion of tracer into the duodenum. T he gallbladder is not visualized. IMPRESSION: Nonvisualization of the gallbladder. This is consistent with acute cholecystitis.
--- NOTE | 2025-02-28 13:37 | PROGRESS NOTE ---
Daily Progress Note Providers to CC ~ Antibiotic Timeout Antibiotic Ordered?: Yes Subjective Patient continues to have pain, underwent HIDA scan Objective Vital Signs Date Time Temp Pulse Resp B/P (MAP) Pulse Ox O2 Delivery O2 Flow Rate FiO2 02/28/25 10:00 98.2 66 15 159/90 (113) 97 Room Air 02/28/25 04:35 0 Result Diagram: 02/27/25 2312 02/28/25 0107 Awake alert oriented HEENT normocephalic atarumatic Neck supple, no JVD Chest Clear to auscultation , no wheezes crackles or rhonchi Heart RRR Abdomen soft, tender in right upper quadrant Extremities No c/c/e Neuro exam nonfocal Coagulation Studies Laboratory Tests Test 02/27/25 23:12 Prothrombin Time 12.4 SECONDS (9.0-12.0) H INR International Normalized Ratio 1.2 INR Activated Partial Thromboplast Time 26 SECONDS (22-32) Coagulation Comments Other Results Medications reviewed Problem\Assessment\Plan Right upper quadrant abdominal pain most likely secondary to acute cholecystitis The patient was initially evaluated with the ultrasound of the abdomen which was significant for borderline gallbladder thickening with a positive Harrell's sign. Findings equivocal for cholecystitis and HIDA scan was recommended. CT scan of the abdomen was done which showed mildly distended gallbladder without any evidence of biliary duct dilatation. A HIDA scan has been done to further evaluate for acute cholecystitis. Continue IV Rocephin IV fluids for hydration . IV morphine 2 mg q.4 hours as needed for pain for supportive care. Alcohol use disorder / Hepatic steatosis CT scan of the abdomen shows considerable fatty infiltration low-density 3.9-3.3 cm cyst in the left lobe of the liver. Patient reported at the time of admission , that she drinks 4-5 drinks of whiskey every day. She stated that she has been drinking heavily over the last one week since she was out of her pain medications. Patient has been educated regarding lifestyle modifications and the importance of staying abstinent from alcohol. She has been started on alcohol withdrawal protocol. Started her on IV thiamine , folic acid and multivitamin supplementation. UTI The patient's urine analysis is positive for nitrates and 4+ bacteria. Started the patient on IV ceftriaxone. Follow up with the urine culture and blood culture. Continue IV fluids for hydration and maintenance. Systemic lupus erythematosus Sjogren syndrome Continue home medications Chronic pancreatic insufficiency Pancreatic cyst Patient reported that he has a history of chronic pancreatic insufficiency. She reported that she is aware of the pancreatic cyst. Lumbar spine fracture The patient is seeing Dr. Watson, neurosurgeon as outpatient. Continue supportive care. PT evaluation and treatment to be done. Code status : Full code. Date of Service: Feb 28, 2025 Billing Provider: JAQUELIN AYALA MD Common Visit Codes: [id number] INP/OBS CARE(HIGH) JAQUELIN AYALA MD Feb 28, 2025 13:37
[2025-02-28] MEDS ORDERED: ONDA-243 PO (15:32)
[2025-02-28] MEDS ORDERED: HYDR200T73 PO (15:35)
[2025-02-28] MEDS ORDERED: NAPR-1168 PO (15:35)
[2025-02-28] MEDS ORDERED: GABA-535 PO (15:47)
[2025-02-28] MEDS ORDERED: LIPA1CAP18 (15:47)
[2025-02-28] MEDS ORDERED: GEMF600T89 PO (15:47)
[2025-02-28] MEDS ORDERED: AMLO5TAB16 PO (15:47)
[2025-02-28] MEDS ORDERED: CYCL1DRO2 EACHEYE (15:47)
[2025-02-28] MEDS ORDERED: AMOX500T2 PO (15:47)
[2025-02-28] MEDS ORDERED: PREG50CA65 PO (15:47)
[2025-02-28] MEDS ORDERED: OXYC1TAB17 PO (15:47)
[2025-02-28] MEDS ORDERED: CYCL-1 PO (15:47)
[2025-02-28] MEDS ORDERED: LIDO700A47 TOP (15:47)
[2025-02-28] MEDS ORDERED: NITR0.4T (15:47)
[2025-02-28] MEDS ORDERED: DICL100G59 TOP (15:47)
[2025-02-28] MEDS ORDERED: FERR324T PO (15:47)
[2025-02-28] MEDS ORDERED: CHOL20003 PO (15:47)
[2025-02-28] MEDS ORDERED: ESCI20TA39 PO (15:47)
[2025-02-28] MEDS ORDERED: LOSA50TA64 PO (15:47)
[2025-02-28] MEDS ORDERED: FLUO100P17 (15:47)
[2025-02-28 18:00] VITALS: BP 163/98; PULSE 70; RESP 16; TEMP 98; O2SAT 99
[2025-02-28 22:00] VITALS: BP 175/82; PULSE 72; RESP 15; TEMP 98.6; O2SAT 97
[2025-03-01] VITALS (17 sets, daily range): BP systolic 101–162; BP diastolic 55–80; PULSE 53–90; RESP 15–23; TEMP 97–97.5; O2SAT 95–100
[2025-03-01] MEDS: HYDROmorphone/PF 0.2 MG/ML SYRINGE IV PRN (04:43)
[2025-03-01 06:24] LABS: CHOL/HDL RATIO 1.7 (0.00-4.99); CREATININE 0.75 MG/DL (0.40-0.90); LDL CHOLESTEROL 49 MG/DL (50-100); MEAN PLATELET VOLUME 7.8 FL (7.4-10.4); RED CELL DISTRIBUTION WIDTH 13.5 % (11.5-14.5); TOTAL CARBON DIOXIDE 26.0 MMOL/L (24-32); eCRCL 74 ML/MIN; eGFR 81 ML/MIN
[2025-03-01] MEDS: potassium Cl 20 mEq SR tablet PO PRN (08:38)
[2025-03-01 08:51] LABS: BANDS% (MANUAL) 1.0 % (0-10); BASOPHILS % (MANUAL) 1.0 % (0-1); EOSINOPHILS % (MANUAL) 3.0 % (0-6); LYMPHOCYTES % (MANUAL) 25.0 % (21-51); MONOCYTES % (MANUAL) 10.0 % (2-12); NEUTROPHILS % (MANUAL) 60.0 % (42-75)
[2025-03-01 08:52] LABS: PLATELET ESTIMATE DECREASED
[2025-03-01] MEDS ORDERED: BUPIVAcaine/PF 2.5mg/ml (0.25%) 10ml vial ONE (13:55)
--- NOTE | 2025-03-01 14:09 | PROGRESS NOTE ---
Progress Note ID Providers to CC ~ Progress Note Progress Note: pt seen examined-hida noted-findings consistent with cystic duct obstruction-pt needs robo jono-possible open-discussed procedure including risks/benefits/alternatives OSMEL BRICENO MD Mar 01, 2025 14:09
[2025-03-01] MEDS ORDERED: fentaNYL/PF 50MCG/1 ML 2ML syringe IV PRN (16:05)
[2025-03-01] MEDS ORDERED: hydrALAZINE 20mg/ml inj. IV PRN (16:05)
[2025-03-01] MEDS ORDERED: ondansetron/PF 4mg/2ml inj IV PRN (16:05)
[2025-03-01] MEDS ORDERED: labetalol 20mg/4ml (5mg/ml) syringe IV PRN (16:05)
[2025-03-01] MEDS: ringers solution, lacted 1,000 ML IV SCH (16:05)
[2025-03-01] MEDS ORDERED: BUPIVAcaine 2.5mg/ml inj 50ml vial (contains preservative) ONE (16:42)
[2025-03-01] MEDS ORDERED: fentaNYL/PF 50MCG/1 ML 2ML syringe ONE (16:43)
[2025-03-01] MEDS ORDERED: MIDAZolam 1 MG/ML 5ML VIAL ONE (16:43)
[2025-03-01] MEDS ORDERED: rocuronium 10mg/ml inj IV ONE (16:44)
[2025-03-01] MEDS ORDERED: LIDOcaine 1%/PF 5ML 10 MG/ML VIAL ONE (16:44)
[2025-03-01] MEDS ORDERED: propofol inj 20 ML IV ONE (16:44)
[2025-03-01] MEDS ORDERED: acetaminophen 1,000mg/100ml IV 100 ML IV ONE (16:44)
[2025-03-01] MEDS ORDERED: dexamethasone sod phosphate 4mg/ml inj. ONE (16:44)
[2025-03-01] MEDS ORDERED: ondansetron/PF 4mg/2ml inj ONE (16:44)
[2025-03-01] MEDS ORDERED: desflurane 240ml liquid inh. IH ONE (16:45)
[2025-03-01] MEDS ORDERED: hydrALAZINE 20mg/ml inj. ONE (17:07)
--- NOTE | 2025-03-01 17:44 | PROGRESS NOTE ---
Daily Progress Note Providers to CC ~ Antibiotic Timeout Antibiotic Ordered?: Yes Subjective Continues to have pain in her abdomen. She has been scheduled for a surgery at 3:30 p.m.. Objective Vital Signs Date Time Temp Pulse Resp B/P (MAP) Pulse Ox O2 Delivery O2 Flow Rate FiO2 03/01/25 08:00 Room Air 03/01/25 06:00 97.3 53 16 162/79 (106) 98 02/28/25 04:35 0 Result Diagram: 03/01/2552103/01/25521 Awake alert oriented HEENT normocephalic atarumatic Neck supple, no JVD Chest Clear to auscultation , no wheezes crackles or rhonchi Heart RRR Abdomen soft, tender in right upper quadrant Extremities No c/c/e Neuro exam nonfocal Coagulation Studies Laboratory Tests Test 02/27/25 23:12 Prothrombin Time 12.4 SECONDS (9.0-12.0) H INR International Normalized Ratio 1.2 INR Activated Partial Thromboplast Time 26 SECONDS (22-32) Coagulation Comments Other Results Medications reviewed Problem\Assessment\Plan # acute cholecystitis: Confirmed by HIDA scan. Surgery has been consulted. Patient to undergo cholecystectomy this afternoon. # chronic alcoholism/hepatic steatosis: Continue monitor LFTs. Treat per alcohol withdrawal protocol as may be necessary. Continue IV thiamine folic acid and multivitamins # UTI: Continue IV antibiotics. # lupus: Continue home medications. Outpatient follow up with her PCP # chronic pancreatic insufficiency/pancreatic cyst: No acute issues at this time. # history of L-spine fracture: Patient is following with Dr. Cazares as outpatient. The patient is seeing Dr. Watson, neurosurgeon as outpatient. Continue PT Code status :Full code. Date of Service: Mar 01, 2025 Billing Provider: JAQUELIN AYALA MD Common Visit Codes: [id number] INP/OBS CARE(HIGH) JAQUELIN AYALA MD Mar 01, 2025 17:44
[2025-03-01] MEDS ORDERED: albumin (Human) 5% 250ml 250 ML IV ONE (18:12)
--- NOTE | 2025-03-01 18:21 | CONSULTATION ---
DATE OF CONSULTATION: 03/01/2025 DICTATING PHYSICIAN: Kali Casillas MD REASON FOR CONSULTATION: Abdominal pain. HISTORY OF PRESENT ILLNESS: The patient is a 54-year-old female who has had multiple medical problems. He has had right upper quadrant pain for the past 1-2 months. The patient had a positive HIDA scan. Surgical evaluation is now requested. On further questioning, he had intermittent upper abdominal discomfort. The patient has nausea and vomiting. No fever or chills. No blood per rectum. No history of ulcer disease. She does have a history of intermittent alcohol use. PAST MEDICAL HISTORY: Significant for pancreatic insufficiency, pancreatic cyst, GERD, hypertension, chronic pain, lupus, Sjogren's syndrome. PAST SURGICAL HISTORY: Orthopedic procedures and back procedure. HOME MEDICATIONS: Include Wellbutrin, Prilosec, Synthroid, Lopressor. ALLERGIES: CODEINE, LISINOPRIL. SOCIAL HISTORY: Frequent alcohol use. No tobacco use. REVIEW OF SYSTEMS: Please see H and P. PHYSICAL EXAMINATION: GENERAL: This is a well-nourished female, in no distress. VITAL SIGNS: Unremarkable. HEART: Regular rate and rhythm. LUNGS: Clear to auscultation. ABDOMEN: Mild some right upper quadrant tenderness. No jade peritonitis. EXTREMITIES: Unremarkable. NEUROLOGIC: Nonfocal. LABORATORY DATA: Include WBC of 3, hematocrit 31, platelet count is 135. No significant left shift. Chemistries include alkaline phosphatase of 261, AST 129, total bilirubin is 0.5. IMAGING STUDIES: HIDA scan was labeled as cyst duct obstruction. CAT scan reveals ascending gallbladder. Gallbladder ultrasound, positive Harrell's. No stones. IMPRESSION: * Cystic duct obstruction. * Pancreatic insufficiency. * GERD. * Hypertension. * Chronic pain. * Lupus. * Sjogren's syndrome. RECOMMENDATIONS: Robotic cholecystectomy. Kali Casillas MD TID: [id number] RECEIPT: [id number] KB/URSULA
--- NOTE | 2025-03-01 18:45 | OPERATIVE REPORT ---
Operative Report Providers to CC ~ Date of Procedure: Mar 01, 2025 Pre-Operative Diagnosis: ? cholecystitis Post-Operative Diagnosis SAME as PRE-Op Procedure Performed estrellita de la cruz Surgeon: dee dee Mixer Crane Operator none Anesthesiologist: Nolan Molina Type of Anesthesia: General Findings: extensive adhesions Estimated Blood Loss: 200 ml Specimen Removed: OSMEL Church MD Mar 01, 2025 18:45
[2025-03-01] MEDS: morphine 4 MG/ML inj SYRINge IV PRN (18:49)
[2025-03-01] MEDS: fentaNYL/PF 50MCG/1 ML 2ML syringe IV PRN (19:21)
[2025-03-01] MEDS: HYDROmorphone inj. 0.5 MG/0.5 ML DISP.SYRIN IV PRN (20:26)
--- NOTE | 2025-03-02 02:32 | OPERATIVE REPORT ---
DATE OF SURGERY: 03/01/2025 DICTATING PHYSICIAN: Kali Casillas MD PREOPERATIVE DIAGNOSIS: Cystic duct obstruction, questionable cholecystitis. POSTOPERATIVE DIAGNOSIS: Cystic duct obstruction, questionable cholecystitis. PROCEDURE: Robotic cholecystectomy. SURGEON: Kali Casillas MD LEAF SUCKER OPERATOR: None. ANESTHESIA: General/Dr. Molina. DRAINS: Alfredo x1. INDICATIONS FOR OPERATION: A 54-year-old female with abdominal discomfort, had a positive HIDA scan, taken to surgery for robotic cholecystectomy. INTRAOPERATIVE FINDINGS: Extensive adhesions. DESCRIPTION OF PROCEDURE: The patient was placed supine on the operating table. After induction of general anesthesia and placement of endotracheal tube, the abdomen was prepped and draped. A subumbilical incision was then made and Gerda port placed using an open technique. Pneumoperitoneum was begun by insufflation of CO2. Additional port was then placed in left lower quadrant, two in the right. Robot was then brought to the field. Camera port docked. Camera placed, camera targeted. Additional ports were then docked and instruments placed. Abdomen was then explored. The patient had extensive adhesions. taken down. Gallbladder fundus was grasped and retracted cephalad. The gallbladder was subsequently mobilized. The patient had extensive adhesions adjacent to the gallbladder, so the cystic duct could not be isolated safely. Top-down approach was performed. The gallbladder fundus was mobilized out of the gallbladder fossa and gallbladder mobilized down to the level of the cystic duct. Cystic artery was then isolated, ligated and divided. The then divided. Hemostasis was found to be adequate. Robotic instruments were removed. Robot undocked from the field, camera placed Endobag using laparoscope. Abdomen was irrigated with large amount of antibiotic-containing solution. The patient had some bleeding from adhesions. was placed. There seemed to be some improvement. A #19 Alfredo drain was placed through a port incision directly into the gallbladder fossa. Ports were then removed under laparoscopic vision with no evidence of active bleeding. Final port and camera were withdrawn. Pneumoperitoneum was then evacuated. Wounds were closed in layers. The skin was closed with subcuticular stitch. Dressings were applied. The patient was transferred to recovery in stable condition after general anesthesia. Kali Casillas MD TID: [id number] RECEIPT: [id number] LEATHA/MALORIE/HADLEY
[2025-03-02 02:38] VITALS: BP 110/66; PULSE 74; RESP 16; O2SAT 97
[2025-03-02] MEDS: HYDROcodone/acetaminophen 5mg/325mg tablet PO PRN (03:55)
[2025-03-02 05:26] LABS: MEAN PLATELET VOLUME 7.6 FL (7.4-10.4); RED CELL DISTRIBUTION WIDTH 13.9 % (11.5-14.5)
[2025-03-02 06:00] VITALS: BP 145/83; PULSE 84; RESP 18; TEMP 98.4; O2SAT 97
[2025-03-02 06:00] LABS: CREATININE 0.96 MG/DL (0.40-0.90); TOTAL CARBON DIOXIDE 18.4 MMOL/L (24-32); eCRCL 58 ML/MIN; eGFR 61 ML/MIN
[2025-03-02 10:00] VITALS: BP 130/79; PULSE 76; RESP 16; TEMP 99; O2SAT 98
--- NOTE | 2025-03-02 10:16 | PROGRESS NOTE ---
Daily Progress Note Providers to CC ~ Antibiotic Timeout Antibiotic Ordered?: Yes Subjective Feels rumbling in her stomach Objective Vital Signs Date Time Temp Pulse Resp B/P (MAP) Pulse Ox O2 Delivery O2 Flow Rate FiO2 03/02/25 08:12 16 03/02/25 06:00 98.4 84 145/83 (103) 97 Room Air 03/01/25 19:40 0.0 Result Diagram: 03/02/25 0511 03/02/25 0511 Awake alert oriented HEENT normocephalic atarumatic Neck supple, no JVD Chest Clear to auscultation , no wheezes crackles or rhonchi Heart RRR, No murmur gallop or rub Abdomen soft, has a drain in the right side of abdomen, bandage on the abdomen is noted Extremities No c/c/e Neuro exam nonfocal Coagulation Studies Laboratory Tests Test 02/27/25 23:12 Prothrombin Time 12.4 SECONDS (9.0-12.0) H INR International Normalized Ratio 1.2 INR Activated Partial Thromboplast Time 26 SECONDS (22-32) Coagulation Comments Other Results Medications reviewed Problem\Assessment\Plan # acute cholecystitis: S/P Cholecystectomy, Doing well post operatively, Treat per surgery recommendation # chronic alcoholism/hepatic steatosis: Continue monitor LFTs. Treat per alcohol withdrawal protocol as may be necessary. Continue IV thiamine folic acid and multivitamins # UTI: Continue IV antibiotics. # lupus: Continue home medications. Outpatient follow up with her PCP # chronic pancreatic insufficiency/pancreatic cyst: No acute issues at this time. # history of L-spine fracture: Patient is following with Dr. Cazares as outpatient. The patient is seeing Dr. Watson, neurosurgeon as outpatient. Continue PT Code status :Full code. Date of Service: Mar 02, 2025 Billing Provider: JAQUELIN AYALA MD Common Visit Codes: [id number] INP/OBS CARE(HIGH) JAQUELIN AYALA MD Mar 02, 2025 10:16
[2025-03-02 11:05] VITALS: RESP 16; O2SAT 97
--- NOTE | 2025-03-02 17:17 | PROGRESS NOTE ---
Progress Note ID Providers to CC ~ Progress Note Progress Note: persistent pain/vss/abd-nondistended/labs noted a/p 1. s/p jono-slow progress/cont supportive care OSMEL BRICENO MD Mar 02, 2025 17:17
[2025-03-02 18:00] VITALS: BP 142/77; PULSE 80; RESP 16; TEMP 98.6; O2SAT 96
[2025-03-02 22:00] VITALS: BP 143/87; PULSE 94; RESP 16; TEMP 98.4; O2SAT 97
[2025-03-03 06:48] LABS: MEAN PLATELET VOLUME 8.1 FL (7.4-10.4); RED CELL DISTRIBUTION WIDTH 14.3 % (11.5-14.5)
[2025-03-03 07:10] LABS: CREATININE 0.98 MG/DL (0.40-0.90); TOTAL CARBON DIOXIDE 24.9 MMOL/L (24-32); eCRCL 57 ML/MIN; eGFR 59 ML/MIN
--- NOTE | 2025-03-03 09:33 | PATHOLOGY REPORT ---
[facility] [address] [place] [address] SURGICAL PATHOLOGY REPORT CaseNumber: [id number] Surgeon:Kali Casillas M.D. CLINICAL INFORMATION CLINICAL INFORMATION: Acute abdominal pain, possible cholecystitis, UTI, weakness. DIAGNOSIS DIAGNOSIS: GALLBLADDER; CHOLECYSTECTOMY - CHRONIC CHOLECYSTITIS. MICROSCOPIC DESCRIPTION MICROSCOPIC DESCRIPTION: A single H&E stained slide of a gallbladder is reviewed. The slide shows mil d chronic inflammation expanding the lamina propria, with occasional mucosal folds extending into the underlying muscle fibers. The findings are consistent with chronic changes. The mucosa shows maturat ion without evidence of dysplasia or malignancy. GROSS DESCRIPTION GROSS DESCRIPTION: Received in a container of formalin labeled with the patient's name, number, and " gallbladder" is a disrupted gallbladder which measures 4 cm long by 3.5 cm in diameter. The serosa is roughened and purple-shaver. The surgical bed is unremarkable. Sectioning reveals a small amount of vis cous dark green bile but no stones. The specimen container is strained and no stones are found. The m ucosa is intact and without focal lesion. The wall of the gallbladder measures up to 0.5 cm thick. Re presentative sections of the neck and wall of the gallbladder are submitted as A1.The time at which t he specimen was removed was 1755. The time at which the specimen was placed in formalin was 1800. (il b) Electronically signed by: Colton Lang, 03/03/2025 8:59:00 AM
[2025-03-03 10:00] VITALS: BP 157/88; PULSE 74; RESP 14; TEMP 98.5; O2SAT 98
[2025-03-03] MEDS ORDERED: potassium Cl 20 mEq SR tablet PO PRN (13:20)
[2025-03-03] MEDS ORDERED: magnesium sulf-water 4G/100mL 100 ML IV PRN (13:20)
[2025-03-03] MEDS ORDERED: potassium Cl 40MEQ/1/2NS 520ml 520 ML IV PRN (13:20)
[2025-03-03] MEDS ORDERED: magnesium sulf-water 2g/50mL 50 ML IV PRN (13:20)
[2025-03-03] MEDS: magnesium Cl slow-release 64mg tablet PO PRN (13:46)
--- NOTE | 2025-03-03 15:50 | PROGRESS NOTE ---
Daily Progress Note Providers to CC ~ Antibiotic Timeout Antibiotic Ordered?: Yes Subjective No new complaints. Objective Vital Signs Date Time Temp Pulse Resp B/P (MAP) Pulse Ox O2 Delivery O2 Flow Rate FiO2 03/03/25 10:00 98.5 74 14 157/88 (111) 98 Room Air 03/01/25 19:40 0.0 Result Diagram: 03/03/25 0553 03/03/25 0553 Awake alert oriented HEENT normocephalic atarumatic Neck supple, no JVD Chest Clear to auscultation , no wheezes crackles or rhonchi Heart RRR, No murmur gallop or rub Abdomen soft, has a drain in the right side of abdomen with blood-tinged fluid in it. bandage on the abdomen is noted . Bowel sounds audible Extremities No c/c/e Neuro exam nonfocal Coagulation Studies Laboratory Tests Test 02/27/25 23:12 Prothrombin Time 12.4 SECONDS (9.0-12.0) H INR International Normalized Ratio 1.2 INR Activated Partial Thromboplast Time 26 SECONDS (22-32) Coagulation Comments Other Results Medications reviewed Problem\Assessment\Plan # acute cholecystitis: S/P Cholecystectomy, Doing well post operatively, Treat per surgery recommendation # chronic alcoholism/hepatic steatosis: Continue monitor LFTs. Treat per alcohol withdrawal protocol as may be necessary. Continue IV thiamine folic acid and multivitamins # UTI: Continue IV antibiotics. # lupus: Continue home medications. Outpatient follow up with her PCP # chronic pancreatic insufficiency/pancreatic cyst: No acute issues at this time. # history of L-spine fracture: Patient is following with Dr. Cazares as outpatient. The patient is seeing Dr. Watson, neurosurgeon as outpatient. Continue PT Code status :Full code. Disposition: When cleared by surgery. Date of Service: Mar 03, 2025 Billing Provider: JAQUELIN AYALA MD Common Visit Codes: [id number] INP/OBS CARE(HIGH) JAQUELIN AYALA MD Mar 03, 2025 15:50
[2025-03-03 18:00] VITALS: BP 149/80; PULSE 77; RESP 16; TEMP 98.6; O2SAT 96
--- NOTE | 2025-03-03 18:43 | PROGRESS NOTE ---
Progress Note ID Providers to CC ~ Progress Note Progress Note: doing well/home in am OSMEL BRICENO MD Mar 03, 2025 18:43
[2025-03-03] MEDS: K and/or MAG REPLACEMENT MC SCH (19:42)
[2025-03-03 20:00] VITALS: RESP 16; O2SAT 96
[2025-03-03 22:00] VITALS: BP 126/77; PULSE 85; RESP 16; TEMP 98.5; O2SAT 93
[2025-03-04 06:00] VITALS: BP 174/90; PULSE 76; RESP 19; TEMP 98.2; O2SAT 95
[2025-03-04 06:37] LABS: MEAN PLATELET VOLUME 8.5 FL (7.4-10.4); RED CELL DISTRIBUTION WIDTH 14.0 % (11.5-14.5)
[2025-03-04 08:00] VITALS: RESP 16; O2SAT 97
[2025-03-04 10:00] VITALS: BP 170/104; RESP 16; TEMP 98.5; O2SAT 93
[2025-03-04 12:06] LABS: CREATININE 0.85 MG/DL (0.40-0.90); TOTAL CARBON DIOXIDE 24.3 MMOL/L (24-32); eCRCL 65 ML/MIN; eGFR 70 ML/MIN
[2025-03-04] MEDS: potassium Cl 20 mEq SR tablet PO PRN (13:03)
[2025-03-04 18:00] VITALS: BP 153/108; PULSE 97; RESP 16; TEMP 97.8; O2SAT 97
[2025-03-04 20:00] VITALS: RESP 16; O2SAT 95
[2025-03-04] MEDS: sulfamethoxazole/trimethoprim DS (800/160mg) tablet PO SCH (20:09)
--- NOTE | 2025-03-04 21:18 | PROGRESS NOTE ---
Progress Note ID Providers to CC ~ Progress Note Progress Note: complains of pain/vss/abd-min distention/labs noted a/p 1. s/p jono-slow progress/repeat ct OSMEL BRICENO MD Mar 04, 2025 21:18
[2025-03-04] MEDS: diatr meglu/diatrizoate 30ml oral sol.-(3 dose) bottle PO SCH (21:56)
[2025-03-04 22:00] VITALS: BP 177/100; PULSE 78; RESP 18; TEMP 98.4; O2SAT 95
[2025-03-05 00:30] VITALS: BP 151/80; PULSE 80
[2025-03-05 05:59] LABS: MEAN PLATELET VOLUME 8.1 FL (7.4-10.4); RED CELL DISTRIBUTION WIDTH 14.4 % (11.5-14.5)
[2025-03-05 06:00] VITALS: BP 154/91; PULSE 75; RESP 16; TEMP 98.3; O2SAT 98
[2025-03-05 06:16] LABS: CREATININE 0.81 MG/DL (0.40-0.90); TOTAL CARBON DIOXIDE 27.0 MMOL/L (24-32); eCRCL 69 ML/MIN; eGFR 74 ML/MIN
[2025-03-05] MEDS: pantoprazole 40mg Tablet.DR PO SCH (07:47)
[2025-03-05 08:00] VITALS: RESP 16; O2SAT 98
[2025-03-05] MEDS ORDERED: iohexol 300mg/ml 100ml inj. ONE (09:48)
[2025-03-05 10:00] VITALS: BP 149/94; PULSE 103; RESP 22; TEMP 98.5; O2SAT 98
--- NOTE | 2025-03-05 11:49 | PROGRESS NOTE ---
Daily Progress Note Providers to CC ~ Antibiotic Timeout Antibiotic Ordered?: Yes Subjective Patient reports feeling better. Was seen ambulating. States drain has been removed. Objective Vital Signs Date Time Temp Pulse Resp B/P (MAP) Pulse Ox O2 Delivery O2 Flow Rate FiO2 03/05/25 10:00 98.5 103 22 149/94 (112) 98 Room Air 03/04/25 20:00 0.0 Result Diagram: 03/05/2552603/05/25524 Awake alert oriented HEENT normocephalic atarumatic Neck supple, no JVD Chest Clear to auscultation , no wheezes crackles or rhonchi Heart RRR, No murmur gallop or rub Abdomen soft, tender as expected. Drain has been removed. Bowel sounds audible. Extremities No c/c/e Neuro exam nonfocal Coagulation Studies Laboratory Tests Test 02/27/25 23:12 Prothrombin Time 12.4 SECONDS (9.0-12.0) H INR International Normalized Ratio 1.2 INR Activated Partial Thromboplast Time 26 SECONDS (22-32) Coagulation Comments Other Results Medications reviewed Problem\Assessment\Plan # acute cholecystitis: S/P Cholecystectomy, Doing well post operatively, Treat per surgery recommendation. # chronic alcoholism/hepatic steatosis: Continue monitor LFTs. Treat per alcohol withdrawal protocol as may be necessary. Continue IV thiamine folic acid and multivitamins # UTI: Continue IV antibiotics. # lupus: Continue home medications. Outpatient follow up with her PCP # chronic pancreatic insufficiency/pancreatic cyst: No acute issues at this time. # history of L-spine fracture: Patient is following with Dr. Cazares as outpatient. Patient is ambulatory. The patient is seeing Dr. Watson, neurosurgeon as outpatient. Continue PT Code status :Full code. Disposition: When cleared by surgery. Date of Service: Mar 05, 2025 Billing Provider: JAQUELIN AYALA MD Common Visit Codes: [id number] INP/OBS CARE(HIGH) JAQUELIN AYALA MD Mar 05, 2025 11:49
[2025-03-05] MEDS: magnesium hydroxide 30ml (MOM) UD suspension PO PRN (12:14)
--- NOTE | 2025-03-05 12:58 | PROGRESS NOTE ---
Progress Note ID Providers to CC ~ Progress Note Progress Note: complains of pain/vss/abd-nondistended/labs noted/ct reviewed a/p 1. s/p jono-slow progress/home in am OSMEL BRICENO MD Mar 05, 2025 12:58
--- NOTE | 2025-03-05 14:15 | RADIOLOGY REPORT ---
CLINICAL INFORMATION: 54 years old, Female; pain. TECHNIQUE: Axial CT images of the abdomen and pelvis were obtained after the uneventful administrati on of 100 mL Omnipaque 300 IV contrast. The patient ingested oral contrast prior to the examination. Coronal and sagittal reformatted images were obtained, reviewed, and stored. All CT scans at this [facility] facility are performed using dose modulation techniques as appropriate to a performed exam inclu ding the following: Automated exposure control was utilized; adjustment of the MA and/or KV according to patient size; and use of iterative reconstruction technique. CTDIvol = 21.48 mGy DLP = 1153.71 mGy-cm COMPARISON: CT CT ABDOMEN PELVIS W/ IV CONTRAST on DOS: 02/28/25, US ULTRASOUND OF ABDOMEN on DOS: 02/27 FINDINGS: Lung bases: Small bilateral pleural effusions with overlying atelectasis. Liver: Hypo enhancing lesion in the left hepatic lobe again seen, measuring up to 4.3 cm in greatest dimension. There is adjacent 0.7 cm hypo enhancing lesion in the left hepatic lobe, also seen in ret rospect in the prior exam. Biliary: Postsurgical changes of cholecystectomy since the prior exam. There is a complex collection at the gallbladder fossa measuring up to 5.6 x 4.4 x 5.3 cm containing locules of gas and complex flu id. There is a drainage catheter coursing into the right hemiabdomen and adjacent to the cholecystect shemar site although not coursing into the main portion of the complex fluid collection. Spleen: Unremarkable. Pancreas: Cystic lesion again seen at the pancreatic tail measuring up to 5.3 cm in greatest dimensio n. Pancreatic duct is prominent, measuring up to 6 mm, similar to the prior exam. Pancreas is atrophi c. Adrenal glands: Unremarkable. No mass. Kidneys: No hydronephrosis or mass. Aorta/Vascular: No aneurysm or significant calcification. Retroperitoneum: No mass or lymphadenopathy. Bowel/mesentery: No small bowel obstruction. Appendix is visualized and appears unremarkable. Small volume pneumoperitoneum, likely due to recent surgery. Pelvic organs: IUD within the fundal endometrial canal. Bladder: Underdistended and not well evaluated. Abdominal wall: Diffuse anasarca. Bones: No acute fracture or focal intraosseous lesion. Postsurgical changes of prior posterior spinal fusion at L4-L5. Surgical hardware appears intact. Chronic compression deformity at the superior en dplate of L3 with up to 10% loss of height. IMPRESSION: 1. Postsurgical changes of cholecystectomy. Complex fluid collection at the cholecystectomy site, po ssible postoperative collection. Superimposed bile leak or infectious etiology not excluded. Correlat e with clinical findings. 2. Small volume pneumoperitoneum, within normal limits for recent postoperative changes. 3. Surgical drain in place, although the catheter does not extend into the main component of the comp jamshid collection described above. 4. No small bowel obstruction. Unremarkable appearing appendix. 5. Unchanged lesions in the left hepatic lobe, which are indeterminate. Nonemergent MRI liver mass pr otocol recommended. 6. Cystic mass at the pancreatic tail is unchanged. This could also be further characterized on nonem ergent MRI. 7. Additional findings as described above.
[2025-03-05 18:30] VITALS: BP 119/68; PULSE 69; RESP 13; TEMP 97.7; O2SAT 98
[2025-03-05 22:00] VITALS: BP 125/63; PULSE 59; RESP 18; TEMP 98.6; O2SAT 99
[2025-03-06 06:00] VITALS: BP 188/91; PULSE 64; RESP 18; TEMP 98.1; O2SAT 98
[2025-03-06] MEDS: pantoprazole 40mg Tablet.DR PO SCH (07:30)
[2025-03-06 08:00] VITALS: RESP 18; O2SAT 98
[2025-03-06 08:30] VITALS: BP 172/94
[2025-03-06 09:30] VITALS: BP 130/77
[2025-03-06 10:00] VITALS: BP 124/75; PULSE 86; RESP 12; TEMP 98.3; O2SAT 98
[2025-03-06] MEDS ORDERED: SULF1TAB45 PO (15:01)
--- NOTE | 2025-03-06 15:02 | DISCHARGE SUMMARY ---
Discharge Summary Providers to CC ~ Discharge Summary Admission Diagnosis: ? cholecystitis Hospital Course DATE OF ADMISSION: 03/01/2025 DATE OF DISCHARGE: 03/06/2025 Discharge Diagnosis\Comment: ACUTE CHOLECYSTITIS Operations\Procedures: Cholecystectomy Consultants: Kali Casillas MD Complications: None Condition on DC: Stable New Medications: Sulfamethoxazole/Trimethoprim (Septra Ds Tab) 800 Mg/160 Mg Tablet 1 TAB PO BID for 5 Days, #10 TAB Continued Medications: Amlodipine Besylate (Amlodipine Besylate) 5 Mg Tablet 1 TAB PO DAILY Cholecalciferol (Vitamin D3) (Vitamin D3) 50 Mcg (2000 Unit) Tablet 1 TAB PO DAILY Cyclobenzaprine* (Cyclobenzaprine*) 10 Mg Tablet 1 TAB PO HS Cyclosporine (Restasis) 0.05 % Droperette 1 DROP EACHEYE Diclofenac Sodium (Diclofenac Sodium) 1 % Gel..gram. GM TOP for pain Escitalopram Oxalate (Escitalopram Oxalate) 20 Mg Tablet 1 TAB PO DAILY Ferrous Gluconate (Ferrous Gluconate) 324 Mg (38 Mg Iron) Tablet 1 TAB PO Fluoride (Sodium) (Sodium Fluoride) 1.1 % Sodium Fluoride Paste..ml. Gabapentin (Gabapentin) 400 Mg Capsule 1 CAP PO TID Gemfibrozil (Gemfibrozil) 600 Mg Tablet 1 TAB PO BID Hydroxychloroquine Sulfate* (Plaquenil*) 200 Mg Tablet 200 MG PO DAILY, TAB Levothyroxine* (Synthroid*) 175 Mcg Tab 112 MCG PO DAILY for 30 Days, #30 TAB Lidocaine (Lidocaine) 5 % Adh..patch 1 PATCH TOP HS Lipase/Protease/Amylase (Kimberly Christian 36,000 Units Capsule) 36K-114K Capsule. Losartan Potassium (Losartan Potassium) 50 Mg Tablet 1 TAB PO BID Metoprolol Tartrate (Lopressor) 50 Mg Tablet 1 TAB PO BID for 30 Days, #60 TAB Naproxen (Naproxen) 500 Mg Tablet 1 TAB PO Q12H for pain for 30 Days, #60 TAB 0 Refills Nitroglycerin (Nitrostat) 0.4 Mg Tab.subl Omeprazole (Omeprazole) 10 Mg Capsule. 1 CAP PO BID for 30 Days, #30 CAP ONDANSETRON ODT 4mg tablet (Ondansetron Odt) 4 Mg Tab.rapdis 1 TAB PO Q6H PRN PRN for nausea/vomiting, #16 TAB 0 Refills Oxycodone Hcl/Acetaminophen (Oxycodone-Acetaminophen 10-325) 10 Mg-325 Mg Tablet 1 TAB PO Q8H PRN for pain Pregabalin (Pregabalin) 50 Mg Capsule 1 CAP PO BID Discontinued Medications: Amoxicillin (Amoxicillin) 500 Mg Tablet 1 TAB PO TID Discharge Summary: Reason for admission: Patient is a 54 years old female presented to the ER for evaluation of abdominal pain. Please refer to admission H&P for more details Hospital course: Patient admitted on the surgical floor under hospital course as follows. 1. Acute cholecystitis: Patient evaluated with an ultrasound of the abdomen which showed gallbladder thickening and a positive Harrell sign. Findings equivocal for cholecystitis. HIDA scan was recommended which confirmed cholecystitis. Patient treated with IV antibiotics. Surgery was consulted and she underwent a cholecystectomy with a placement of a drain which was subsequently removed. Patient has done well postoperatively. She has been having bowel movements and and is ambulatory. Patient has been cleared for discharge. 2. Hepatic steatosis: Outpatient follow up recommended 3. Hyperlipidemia: Continued on Lopid 4. History of lupus and Sjogren syndrome: Patient is on Plaquenil which was continued. 5. Chronic pancreatic insufficiency: [place] [id number] units 6. Hypertension: Continued on losartan metoprolol and amlodipine 7. Depression: Continued on Lexapro 8. Chronic pain: Patient is on oxycodone, gabapentin, Lyrica and cyclobenzaprine which was continued 9. Hypothyroidism: Continued on levothyroxine 10. GERD: Continued on omeprazole 11. MDRO E coli UTI: Treated with Bactrim Discharge exam: Examined the patient on the day of discharge. She is awake alert cooperative in no acute distress HEENT normocephalic atraumatic extraocular movements are intact Neck supple, no JVD Chest: Clear to auscultation Heart: RRR, NO MURMUR OR GALLOP RUB Abdomen is soft, tender as expected, no organomegaly Extremities no cyanosis clubbing or edema Neuro exam is nonfocal Disposition: Home *Problems/Diagnosis: (1) Right upper quadrant abdominal pain Status: Acute Total Time Spent on D/C: > 30 Minutes Date of Service: Mar 06, 2025 Billing Provider: JAQUELIN AYALA MD Common Visit Codes: [id number]/OBS DISCH DAY >30min JAQUELIN AYALA MD Mar 06, 2025 15:02
[2025-03-06] MEDS: levoTHYROXINE 112mcg tablet PO SCH (17:03)
--- NOTE | 2025-03-06 17:23 | PROGRESS NOTE ---
Progress Note ID Providers to CC ~ Progress Note Progress Note: slow progress/cont supportive care OSMEL BRICENO MD Mar 06, 2025 17:23
--- NOTE | 2025-03-06 17:35 | PROGRESS NOTE ---
Daily Progress Note Providers to CC ~ Antibiotic Timeout Antibiotic Ordered?: Yes Subjective Patient has no new complaints. She was seen up and ambulating without any complaints. Agreeable to go home. Objective Vital Signs Date Time Temp Pulse Resp B/P (MAP) Pulse Ox O2 Delivery O2 Flow Rate FiO2 03/06/25 17:05 18 03/06/25 17:02 72 03/06/25 10:00 98.3 124/75 (91) 98 Room Air 03/04/25 20:00 0.0 Result Diagram: 03/05/2552603/05/25 05 Awake alert oriented HEENT normocephalic atarumatic Neck supple, no JVD Chest Clear to auscultation , no wheezes crackles or rhonchi Heart RRR, No murmur gallop or rub Abdomen soft, tender as expected. Drain has been removed. Bowel sounds audible. Extremities No c/c/e Neuro exam nonfocal Coagulation Studies Laboratory Tests Test 02/27/25 23:12 Prothrombin Time 12.4 SECONDS (9.0-12.0) H INR International Normalized Ratio 1.2 INR Activated Partial Thromboplast Time 26 SECONDS (22-32) Coagulation Comments Other Results Medications reviewed Problem\Assessment\Plan Problems/Diagnosis: (1) Right upper quadrant abdominal pain # acute cholecystitis: S/P Cholecystectomy, Doing well post operatively, # chronic alcoholism/hepatic steatosis: Continue monitor LFTs. Treat per alcohol withdrawal protocol as may be necessary. Continue IV thiamine folic acid and multivitamins # UTI: Continue IV antibiotics. # lupus: Continue home medications. Outpatient follow up with her PCP # chronic pancreatic insufficiency/pancreatic cyst: No acute issues at this time. # history of L-spine fracture: Patient is following with Dr. Cazares as outpatient. Patient is ambulatory. The patient is seeing Dr. Watson neurosurgeon as outpatient. Continue PT Code status :Full code. Disposition: I discharge the patient as per Dr. Casillas's note from yesterday however after I discharged the patient, RN informed me that Dr. Dejesus's made rounds, patient complained of a toothache to him and he ordered a dose of Dilaudid and asked the RN to cancel my discharge. Date of Service: Mar 06, 2025 Billing Provider: JAQUELIN AYALA MD Common Visit Codes: [id number] INP/OBS CARE(HIGH) JAQUELIN AYALA MD Mar 06, 2025 17:35
[2025-03-06 18:00] VITALS: BP 172/99; PULSE 73; RESP 14; TEMP 99; O2SAT 96
[2025-03-07] MEDS ORDERED: cholecalciferol (vitamin D3) 1,000 unit (25mcg) tablet PO SCH (08:00)
[2025-03-07] MEDS ORDERED: ESCITALOPRAM 10 mg tablet 10 MG TABLET PO SCH (08:00)
== END 2025-03-06 19:15 | disposition left against medical advice (07) | DRG 263 ==
LOC: ER 22:19 → ED HOLD 02-28 03:33 → EDBEDREQ 02-28 06:30 → ORTHO 4S 02-28 06:55
PROVIDERS: ADMIT Internal Medicine Pulmonary Disease; ATTEND Internal Medicine
PROC: BW211ZZ Computerized Tomography (CT Scan) of Abdomen and Pelvis using Low Osmolar Contrast (ICD-10-PCS; 2025-02-27)
PROC: CF141ZZ Planar Nuclear Medicine Imaging of Gallbladder using Technetium 99m (Tc-99m) (ICD-10-PCS; 2025-02-28)
PROC: 8E0W4CZ Robotic Assisted Procedure of Trunk Region, Percutaneous Endoscopic Approach (ICD-10-PCS; 2025-03-01)
PROC: 0FT44ZZ Resection of Gallbladder, Percutaneous Endoscopic Approach (ICD-10-PCS; principal; 2025-03-01 16:47)
PROC: BW211ZZ Computerized Tomography (CT Scan) of Abdomen and Pelvis using Low Osmolar Contrast (ICD-10-PCS; 2025-03-05)
DX: K81.0 Acute cholecystitis (principal); K82.0 Obstruction of gallbladder; K86.2 Cyst of pancreas; E88.09 Other disorders of plasma-protein metabolism, not elsewhere classified; K86.89 Other specified diseases of pancreas; F10.129 Alcohol abuse with intoxication, unspecified; R16.0 Hepatomegaly, not elsewhere classified; K76.0 Fatty (change of) liver, not elsewhere classified; K21.9 Gastro-esophageal reflux disease without esophagitis; M35.00 Sjogren syndrome, unspecified; I10 Essential (primary) hypertension; N39.0 Urinary tract infection, site not specified; M32.9 Systemic lupus erythematosus, unspecified; F32.A Depression, unspecified; G89.29 Other chronic pain; E03.9 Hypothyroidism, unspecified; B96.20 Unspecified Escherichia coli [E. coli] as the cause of diseases classified elsewhere; Z16.24 Resistance to multiple antibiotics; K66.0 Peritoneal adhesions (postprocedural) (postinfection); E78.00 Pure hypercholesterolemia, unspecified; Z53.29 Procedure and treatment not carried out because of patient's decision for other reasons; Z82.49 Family history of ischemic heart disease and other diseases of the circulatory system
CPT/HCPCS: 36415; 70450; 71045; 74177; 76700; 78226; 80053; 80061; 80305; 80320; 81001; 82948; 83036; 83605; 83690; 83735; 83880; 84132; 84484; 84703; 85007; 85025; 85610; 85730; 87040; 87077; 87081; 87088; 87186; 93005; 96361; 96374; 96375; 97116; 97161; 97530; 99285; A4215; A4615; A4618; A6223; A6253; A6402; A6449; A7000; A9537; G0378; J0131; J0360; J0696; J0780; J1100; J1171; J2250; J2270; J2405; J2470; J2704; J2765; J3010; J3411; J3490; J7030; J7120; P9045; Q9963; Q9967